=== PATIENT | male | born 1940 | race Caucasian/White ===

== ENCOUNTER 2016-07-09 13:15 | Outpatient (CLI) | payer MEDICARE ==
[~2016-07-09] VITALS: Ht 172.7 cm; Wt 86.2 kg
[~2016-07-09 13:15] MED LIST: ASPI-999 PO; BACL10TA PO; BUPIVACAINE 0.25% 30 ML (SENSORCAINE) VIAL ONE; CITA40TA11; CTLP20T PO; LISI1TAB PO; LISI1TAB10; LISI1TAB10 PO; LOVA40TA2 PO; METO-352 PO; OXYC1TAB PO; POTA20TA8; PRD20T PO; TRAM50TA2; TRAM50TA2 PO; TRIAMCINOLONE ACET (KENALOG-40) 40 MG/ML 1 ML VIAL ONE
--- OUTSIDE RECORDS SUMMARY | 2016-07-09 13:19 | XMS REPORT | Continuity of Care Document ---
Author Author [facility] Organization [facility] Address Unknown Phone Unavailable Care Team Providers Care Gas Well Pumper Name Role Phone PATTY CHAMPION MD PCP Insurance Providers Payer Name Policy Number Subscriber Name Relationship Wps Medicare [id number] Randall Cui 18 Self / Same As Patient [employer] Mc[employer] Supp [id number] Randall Cui 18 Self / Same As Patient Advance Directives Directive Response Recorded Date/Time Advance Directives No 04/19/14 1:09pm Health Care Power of Derivatives Trader No 04/19/14 1:09pm Organ Donor Yes 04/19/14 1:09pm Resuscitation Status Full Code 04/19/14 1:09pm Problems Medical Problems Problem Onset Date Status Lumbar radiculopathy Unknown Active Medications Medication Dose Route Sig Days/Qty Instructions Order Date Discontinued Date Status Citalopram Hydrobromide 1 Each PO DAILY 08/21/13 Active HCTZ/Lisinopril (Zestoretic) 1 Each PO DAILY 08/21/13 Active Oxycodone Hcl/Acetaminophen 1-2 Tab PO EVERY 6 HOURS PRN PAIN 20 Qty Active Prednisone 40 Mg PO DAILY 10 Qty 04/19/14 Active Baclofen (Lioresal) 1 Each PO TID PRN PRN SPASMS 10 Qty 04/19/14 Active Social History Social History Problem Response Recorded Date/Time Alcohol Use Occasionally Uses 04/19/2014 1:09pm Recreational Drug Use No 04/19/2014 1:09pm Recent Foreign Travel No 04/19/2014 1:06pm Smoking Status Never a Smoker 04/19/2014 1:09pm Query Response Start Date Stop Date Smoking Status Never a Smoker Hospital Discharge Instructions No hospital discharge instructions. Plan of Care No plan of care. Functional Status No functional status results. Allergies, Adverse Reactions, Alerts Allergen Type Severity Reaction Status Last Updated ibuprofen Allergy Active 08/21/13 Immunizations Name Given Type Date of Influenza Vaccine 03/17/14 Historical Vital Signs Acute Vital Signs Vital Response Date/Time Temperature (Fahrenheit) 98.3 degrees F (97.6 - 99.5) Temperature (Calculated Celsius) 36.39285 degrees C (36.4 - 37.5) Temperature Source Tympanic Pulse Rate (adult) 80 bpm (60 - 90) Respiratory Rate 18 bpm (12 - 24) O2 Sat by Pulse Oximetry 98 % (88 - 100) Blood Pressure 182/92 mm Hg Pain Pain Intensity 5 Height (Feet) 5 feet Height (Inches) 8 inches Height (Calculated Centimeters) 172.225032 cm Weight (Pounds) 192 pounds Weight (Calculated Kilograms) 87.556421 kilograms Calculated BMI 29.19 Results No known relevant diagnostic tests, laboratory data and/or discharge summary. Procedures No known history of procedures. Encounters Encounter Location Date/Time Departed Emergency Room Via [facility] 04/19/14 11:25am Discharged Recurring Via [facility] 04/15/14 9:17am Recent Diagnosis
[2016-07-09 13:29] VITALS: BP 156/105
[2016-07-09 14:24] VITALS: BP 161/114
--- NOTE | 2016-07-09 14:46 | Pain Medicine-Procedure ---
Procedure Pre-Op/Post-Op Diagnosis Diagnosis: disc disorder with radiculopathy, lumbar Indications for Operation Low back pain Attending Surgeon Anneliese Procedure Date of Service: Jul 09, 2016 Procedure: Caudal epidural steroid injection with catheter under fluoroscopic guidance Procedure: Patient was identified in the holding area. After risks, benefits, and alternatives were discussed with the patient, informed consent was obtained. Patient was brought to the fluoroscopy suite and placed prone on the procedure room table. A time out was performed. Vital signs were monitored throughout the procedure. The patients low back was prepped and draped in the usual sterile fashion. The patients skin was anesthetized using 2% Lidocaine. A Tuohy needle was inserted and multiple attempts were made to advance the needle to the L2-L3 lumbar epidural space but were unsuccessful. Patient was given the option of continuing the procedure and elected to proceed and so the skin was anesthetized over the L4-L5 epidural space and aching in a 2 needle was inserted and multiple tensor made to access the lumbar epidural space at L4- L5 and were unsuccessful. Patient was given the option of terminating the procedure or reporting the procedure to a caudal epidural steroid injection and elected to continue the procedure and convert to caudal epidural. The lower back above the caudal space was prepped with chloraprep and draped in the usual sterile fashion. The skin over the sacral hiatus was identified under fluoroscopic guidance and infiltrated with 1% lidocaine for local anesthesia via 25 gauge needle. An 17-gauge epimed needle was used to access the epidural space under fluoroscopic guidance and was then advanced into the epidural space under fluoroscopic guidance in the AP view. The epimed catheter was then advanced under flourospopic guidance to the L4-L5 interspace. There was no paresthesia with catheter placement. After negative aspiration 1 cc of the contrast dye was injected through the needle with good spread of the medication in the epidural space at the appropriate levels. Again, after negative aspiration, 80 mg of kenalog with 2 cc of 0.25% marcaine and 2 mL's of preservative free normal saline was injected. There was no evidence of CSF, paresthesia or heme during the procedure. The catheter and needle were withdrawn as a unit and the tip was noted to be intact upon removal. Skin was cleaned and a sterile dressings were applied. Following the procedure the patient's vital signs were stable. The patient was discharged home after a brief period of observation with no new neuologic deficits. Complications None ELVIA PETERSEN MD Jul 09, 2016 2:46 pm
== END 2016-07-09 14:25 ==
LOC: CARD 13:15
PROVIDERS: ATTEND Pain Medicine Pain Medicine
DX: M51.16 Intervertebral disc disorders with radiculopathy, lumbar region (principal); M47.816 Spondylosis without myelopathy or radiculopathy, lumbar region; Z79.899 Other long term (current) drug therapy
CPT/HCPCS: 62323

== ENCOUNTER 2017-03-13 11:30 | Outpatient (RCR) | payer MEDICARE ==
[2017-01-09 13:36] VITALS: BP 134/87
[2017-01-09 13:56] VITALS: BP 134/87
[2017-02-13 12:12] VITALS: BP 119/78
[~2017-03-13] VITALS: Ht 172.7 cm; Wt 86.2 kg
[~2017-03-13 11:30] MED LIST changes: -BUPIVACAINE 0.25% 30 ML (SENSORCAINE) VIAL ONE; -TRIAMCINOLONE ACET (KENALOG-40) 40 MG/ML 1 ML VIAL ONE
[2017-03-13 13:20] VITALS: BP 151/97
== END 2017-03-16 | disposition home or self-care (01) ==
LOC: SDC 11:30
PROVIDERS: ATTEND Internal Medicine
DX: D75.1 Secondary polycythemia (principal)
CPT/HCPCS: 99195

== ENCOUNTER 2017-07-15 11:10 | Outpatient (RCR) | payer MEDICARE ==
[2017-04-17 14:00] VITALS: BP 140/91
[2017-05-15 11:36] VITALS: BP 141/85
[2017-06-13 11:00] VITALS: BP 131/88
[~2017-07-15] VITALS: Ht 172.7 cm; Wt 86.2 kg
== END 2017-07-16 | disposition home or self-care (01) ==
LOC: SDC 11:10
PROVIDERS: ATTEND Internal Medicine
DX: D75.1 Secondary polycythemia (principal)
CPT/HCPCS: 99195

== ENCOUNTER 2019-01-09 10:38 | Emergency (ER) | payer MEDICARE ==
[~2019-01-09] VITALS: Ht 172.7 cm; Wt 86.2 kg
[~2019-01-09 10:38] MED LIST changes: -CITA40TA11; +CITA40TA11 PO
[2019-01-09] MEDS ORDERED: ASPIRIN 81 MG CHEW (CHILDREN'S ASA) PO ONE (11:30)
[2019-01-09 11:32] LABS: BASOPHILS % (AUTO) 0 % (0-10); EOSINOPHILS % (AUTO) 0 % (0-10); HEMATOCRIT 46 % (40-54); HEMOGLOBIN 13.9 G/DL (13.3-17.7); LYMPHOCYTES # (AUTO) 1.1 X 10^3 (1.0-4.0); LYMPHOCYTES % (AUTO) 11 % (12-44); MEAN CORPUSCULAR HEMOGLOBIN 25 PG (25-34); MEAN CORPUSCULAR HGB CONC 30 G/DL (32-36); MEAN CORPUSCULAR VOLUME 81 FL (80-99); MEAN PLATELET VOLUME 9.2 FL (7.4-10.4); MONOCYTES # (AUTO) 1.2 X 10^3 (0.0-1.0); MONOCYTES % (AUTO) 12 % (0-12); NEUTROPHILS % (AUTO) 77 % (42-75); PLATELET COUNT 296 10^3/uL (130-400); RED CELL DISTRIBUTION WIDTH 17.7 % (10.0-14.5); WHITE BLOOD COUNT 10.3 10^3/uL (4.3-11.0)
--- NOTE | 2019-01-09 11:36 | ED Lower Extremity ---
General Chief Complaint: Lower Extremity Stated Complaint: LEFT LEG/HIP PAIN History of Present Illness Date Seen by Provider: Jan 09, 2019 Time Seen by Provider: 11:15 Initial Comments 78 year old male presents for left hip and leg pain. He was consuming alcohol last evening and believes he fell at some point in the night, but is unsure. It was not witnessed. He denies headache or tenderness to head/neck. His only complaint is left groin and upper thigh pain. He took Tramadol with no improvement in his s/s. He is on ASA 81 mg daily, last dose yesterday. He took his Lisinopril/HCTZ, Potassium, and Citalopram this morning. He denies chest pain, SOA, syncope, weakness, or other complaints. He was able to ambulate and perform all ADLs this morning but the left hip continued to be painful. He is followed by Drs. Patel and Fabien, but is not compliant with all follow up appointments. He had a cardiac catheterization in 2016. He is unaware of history of a-fib, though it was noted on monitor with variable rate and some runs of sinus rhythm. Previous EKGs from 2016 do not show A Fib. 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 reports he took 2 Prednisone for the last 2 days because his feet were swelling. Onset: yesterday Pain/Injury Location: left hip, left leg Method of Injury: unknown, fell (possible) Allergies and Home Medications Allergies Coded Allergies: ibuprofen (Unverified Allergy, Unknown, 01/07/16) Home Medications Aspirin 81 Mg Tab.chew, 81 MG PO DAILY Prescribed by: NYLA CLINTON on 01/08/16 1340 Cyclobenzaprine HCl 10 Mg Tablet, 10 MG PO Q8H PRN for SPASMS Prescribed by: ANNY LIM on 01/09/19 1248 Lisinopril/Hydrochlorothiazide 1 Each Tablet, 40-50 MG PO DAILY Prescribed by: LAURIE MARTINEZ on 01/07/16 2245 Lovastatin 40 Mg Tablet, 40 MG PO DAILY Prescribed by: NYLA CLINTON on 01/08/16 1340 Metoprolol Succinate 50 Mg Tab.er.24h, 50 MG PO DAILY Prescribed by: NYLA CLINTON on 01/08/16 1340 Potassium Chloride 20 Meq Tablet.er, 20 MEQ PO DAILY Prescribed by: ANNY LIM on 01/09/19 1248 Tramadol HCl 50 Mg Tablet, 50 MG PO BID PRN for MODERATE PAIN Prescribed by: LAURIE MARTINEZ on 01/07/16 2772 Patient Home Medication List Home Medication List Reviewed: Yes Review of Systems Constitutional: no symptoms reported, see HPI Respiratory: no symptoms reported, see HPI; No dyspnea on exertion, No short of breath Cardiovascular: no symptoms reported, see HPI Gastrointestinal: no symptoms reported, see HPI; No abdominal pain Musculoskeletal: see HPI, joint pain (hip and thigh), muscle pain (left thigh) Psychiatric/Neurological: No Symptoms Reported, See HPI All Other Systems Reviewed Negative Unless Noted: Yes Past Ksjprok-Fgdilv-Zwtdiq Hx Past Med/Social Hx: Reviewed Nursing Past Med/Soc Hx, Reviewed and Corrections made Patient Social History Alcohol Use: Regular Use Alcohol Beverage of Choice: [place] Type Used: Cigars Recent Foreign Travel: No Contact w/Someone Who Travel: No Recent Hopitalizations: No Immunizations Up To Date Tetanus Booster (TDap): Unknown Date of Pneumonia Vaccine: Apr 08, 2012 Date of Influenza Vaccine: Mar 17, 2014 Past Medical History Orthopedic Currently Using CPAP: No Currently Using BIPAP: No Hypertension Reproductive Disorders: No Depression Adverse Reaction/Blood Tranf: No Family Medical History Cardiovascular disease 19 FATHER (mi) Neoplasm 19 FATHER (lung ca) 19 MOTHER (lung ca) Not obtainable due to adoption G8 SISTER ( in [place] after drinking alcohol) Respiratory disorder G8 SISTER (copd) No Pertinent Family Hx Physical Exam Vital Signs Vital Signs - First Documented 01/09/19 11:09 Temp 98.4 Pulse 123 Resp 18 B/P (MAP) 177/111 (133) Pulse Ox 93 Capillary Refill : Height, Weight, BMI Height: 5'8.00" Weight: 190lbs. 0.0oz. 86.525658yk; 28.9 BMI Method:Stated General Appearance: WD/WN, no apparent distress HEENT: normal ENT inspection, TMs normal, pharynx normal Neck: non-tender, full range of motion, supple, normal inspection Cardiovascular: no edema, no JVD, no murmur, tachycardia, irregularly irregular Respiratory: chest non-tender, lungs clear, normal breath sounds, no respiratory distress Gastrointestinal: normal bowel sounds, non tender, soft Hips: right hip non-tender; bilateral hip normal inspection; right hip normal range of motion; left hip bone tenderness, left hip limited range of motion, left hip pain, left hip soft tissue tenderness Knees: bilateral knee normal range of motion, bilateral knee bone tenderness (chronic, history of OA but declines knee replacement) Ankles: bilateral ankle non-tender, bilateral ankle normal inspection Neurologic/Tendon: normal sensation, normal motor functions, normal tendon functions Neurologic/Psychiatric: no motor/sensory deficits, alert, normal mood/affect, oriented x 3 Skin: normal color, warm/dry; No diaphoresis, No pallor Lymphatic: no adenopathy Progress/Results/Core Measures Results/Orders Lab Results Laboratory Tests Test 01/09/19 11:28 Range/Units White Blood Count 10.3 4.3-11.0 10^3/uL Red Blood Count 5.67 4.35-5.85 10^6/uL Hemoglobin 13.9 13.3-17.7 G/DL Hematocrit 46 40-54 % Mean Corpuscular Volume 81 80-99 FL Mean Corpuscular Hemoglobin 25 25-34 PG Mean Corpuscular Hemoglobin Concent 30 L 32-36 G/DL Red Cell Distribution Width 17.7 H 10.0-14.5 % Platelet Count 296 130-400 10^3/uL Mean Platelet Volume 9.2 7.4-10.4 FL Neutrophils (%) (Auto) 77 H 42-75 % Lymphocytes (%) (Auto) 11 L 12-44 % Monocytes (%) (Auto) 12 0-12 % Eosinophils (%) (Auto) 0 0-10 % Basophils (%) (Auto) 0 0-10 % Neutrophils # (Auto) 8.0 H 1.8-7.8 X 10^3 Lymphocytes # (Auto) 1.1 1.0-4.0 X 10^3 Monocytes # (Auto) 1.2 H 0.0-1.0 X 10^3 Eosinophils # (Auto) 0.0 0.0-0.3 10^3/uL Basophils # (Auto) 0.0 0.0-0.1 10^3/uL Prothrombin Time 12.9 12.2-14.7 SEC INR Comment 0.9 0.8-1.4 Activated Partial Thromboplast Time 26 24-35 SEC Sodium Level 141 135-145 MMOL/L Potassium Level 2.1 *L 3.6-5.0 MMOL/L Chloride Level 92 L 98-107 MMOL/L Carbon Dioxide Level 34 H 21-32 MMOL/L Anion Gap 15 H 5-14 MMOL/L Blood Urea Nitrogen 18 7-18 MG/DL Creatinine 1.11 0.60-1.30 MG/DL Estimat Glomerular Filtration Rate > 60 BUN/Creatinine Ratio 16 Glucose Level 156 H 70-105 MG/DL Calcium Level 9.1 8.5-10.1 MG/DL Corrected Calcium 9.3 8.5-10.1 MG/DL Total Bilirubin 0.8 0.1-1.0 MG/DL Aspartate Amino Transf (AST/SGOT) 30 5-34 U/L Alanine Aminotransferase (ALT/SGPT) 26 0-55 U/L Alkaline Phosphatase 106 40-136 U/L Troponin I < 0.028 <0.028 NG/ML Total Protein 7.0 6.4-8.2 GM/DL Albumin 3.8 3.2-4.5 GM/DL My Orders Orders - ANNY LIM Cbc With Automated Diff (01/09/19 11:19) Comprehensive Metabolic Panel (01/09/19 11:19) Protime With Inr (01/09/19 11:19) Partial Thromboplastin Time (01/09/19 11:19) Troponin I (01/09/19 11:19) Pelvis With Left Hip 2-3 Views (01/09/19 11:19) Ekg Tracing (01/09/19 11:19) Aspirin Chewable Tablet (Baby Aspirin Ch (01/09/19 11:30) Potassium Chloride (Tablet) (Klor Con Ta (01/09/19 12:09) Cyclobenzaprine Tablet (Flexeril Tablet) (01/10/19 09:00) Cyclobenzaprine Tablet (Flexeril Tablet) (01/09/19 12:45) Medications Given in ED Current Medications Medications Dose Ordered Sig/[place] Route Start Time Stop Time Status Last Admin Dose Admin Aspirin 324 mg ONCE ONCE PO 01/09/19 11:30 01/09/19 11:31 DC 01/09/19 11:43 324 MG Vital Signs/I&O 01/09/19 01/09/19 11:09 13:25 Temp 98.4 98.4 Pulse 123 123 Resp 18 18 B/P (MAP) 177/111 (133) 152/99 (116) Pulse Ox 93 93 Progress Progress Note : Time: 11:15 Progress Note Patient is seen and evaluated, although his chief complaint is left groin pain, with the heart rhythm on monitor having runs of a-fib and sinus, will get EKG. He denies SOA or Chest Pain, but will check troponin. Then obtain pelvis and left hip x-ray. 1145 Tramadol 50 mg and Cyclobenzaprine 10 mg for pain. 12:15 K+ 2.1, will give K+ 20 mEq po. Patient states he takes K+ 8 mEq? 1230 reviewed x-ray and lab findings with the patient and son. Discussed his EKG. Will speak to cardiology before making disposition plans. [address] Yanez, reviewed EKG findings. [place] disposition to home with follow up Cariology next week. Appt made with Dr. Conn's office 1255 Dr. Yanez here, evaluating patient. Agreed there are some runs of A-fib but then returns to sinus rhythm. 1315 Discharge instructions and return precautions reviewed with, his son and . All questions answered. Initial ECG Impression Date: Jan 09, 2019 Initial ECG Impression Time: 11:33 Initial ECG Rate: 89 Initial ECG Rhythm: Normal Sinus (with sinus arrythmia) Initial ECG Intervals WY 140, QRSD 102, QT 392, QTC 477. Crucible P 29, QRS -49, T 39. Initial ECG Impression: Normal, Nonspecific Changes Initial ECG Comparisson: Unchanged Comment Reviewed with Dr. Boudreaux, non-specific changes. Diagnostic Imaging Diagonstic Imaging: Xray Plain Films/CT/US/NM/MRI: pelvis, hip Comments NAME: GLORIA DALTON [employer] REC#: [id number] PT STATUS: REG ER : 1940 PHYSICIAN: ANNY LIM ADMIT DATE: 01/09/19/ER Draft Date of Exam:01/09/19 PELVIS WITH LEFT HIP 2-3 VIEWS INDICATION: Pain. COMPARISON: CT dated April 19, 2014. TECHNIQUE: Three radiographs of the pelvis and left hip dated January 09, 2019. FINDINGS: No acute fracture or dislocation. No destructive osseous process. Mild degenerative changes within the bilateral hips and visualized lower lumbar spine. The sacroiliac joints are intact. The left femoral head maintains its normal shape and contour. IMPRESSION: No acute osseous abnormality with mild scattered degenerative changes. Dictated on workstation # [id number] Dict: 01/09/19 1229 Trans: 01/09/19 1232 [id number] Interpreted by: TITUS ELI MD Electronically signed by: Departure Impression Primary Impression: Fall Qualified Codes: W19.XXXA - Unspecified fall, initial encounter Additional Impressions: Left hip pain New onset a-fib Disposition: HOME, SELF-CARE Condition: Improved Departure-Patient Inst. Decision time for Depature: 13:10 Referrals: PATTY PATEL MD (PCP/Family) Primary Care Physician Patient Instructions: Alcohol Abuse and Alcoholism (DC), Atrial Fibrillation (DC), Hip Pain (DC) Add. Discharge Instructions: Follow up with Dr. Patel, call Saturday for Appt. Appt with Melani Luciano NP at Dr. Conn's office on Saturday 2:00 pm Take the Potassium I have prescribed for the next 6 days, then talk to Dr. Patel about continuing your previous dose. Continue to use Tramadol every 6-8 hours for pain. Take the Cyclobenzaprine for muscle pain every 8 hours, as needed. You may take Tylenol 650 mg every 6-8 hours. Increase water intake. Continue to take your other routine medications, including Aspirin 81 mg daily. Ice to left hip 20 min every 2 hours. Use the cane for ambulation, hold in your right hand. Decrease alcohol intake. Return to emergency dept for new concerns, chest pain, difficulty breathing, chest palpitations, new falls, or other urgent concerns. All discharge instructions reviewed with patient and/or family. Voiced understanding. Scripts Cyclobenzaprine HCl (Cyclobenzaprine HCl) 10 Mg Tablet 10 MG PO Q8H PRN for SPASMS, #15 TAB 0 Refills Prov: ANNY LIM 01/09/19 Potassium Chloride (K-Tab ER) 20 Meq Tablet.er 20 MEQ PO DAILY, #6 TAB 0 Refills Prov: ANNY LIM 01/09/19 Copy Copies To 1: PATTY PATEL MD; SAGE CONN MD [facility]; Joshua YAENZ MD, AMY ARNP Jan 09, 2019 11:36
[2019-01-09 11:46] LABS: INR 0.9 (0.8-1.4); PROTHROMBIN TIME PATIENT 12.9 SEC (12.2-14.7)
[2019-01-09 11:57] LABS: ALANINE AMINOTRANSFERASE 26 U/L (0-55); ALBUMIN 3.8 GM/DL (3.2-4.5); ALKALINE PHOSPHATASE 106 U/L (40-136); BILIRUBIN,TOTAL 0.8 MG/DL (0.1-1.0); BUN/CREATININE RATIO 16; CALCIUM 9.1 MG/DL (8.5-10.1); CARBON DIOXIDE 34 MMOL/L (21-32); CHLORIDE 92 MMOL/L (98-107); CREATININE SERUM 1.11 MG/DL (0.60-1.30); GFR ESTIMATED > 60; GLUCOSE 156 MG/DL (70-105); SODIUM 141 MMOL/L (135-145)
[2019-01-09 12:05] LABS: POTASSIUM 2.1 MMOL/L (3.6-5.0)
[2019-01-09] MEDS ORDERED: KCL 10 MEQ TAB (MICRO K) PO STA (12:09)
--- NOTE | 2019-01-09 12:33 | Diagnostic Imaging Report ---
INDICATION: Pain. COMPARISON: CT dated April 19, 2014. TECHNIQUE: Three radiographs of the pelvis and left hip dated January 09, 2019. FINDINGS: No acute fracture or dislocation. No destructive osseous process. Mild degenerative changes within the bilateral hips and visualized lower lumbar spine. The sacroiliac joints are intact. The left femoral head maintains its normal shape and contour. IMPRESSION: No acute osseous abnormality with mild scattered degenerative changes. Dictated by: Dictated on workstation # [id number]
[2019-01-09] MEDS ORDERED: CYCLOBENZAPRINE 10 MG (FLEXERIL) TAB PO SCH (12:45)
[2019-01-09] MEDS ORDERED: CYCL10TA9 PO (12:48)
[2019-01-09] MEDS ORDERED: POTA-53 PO (12:48)
--- NOTE | 2019-01-09 13:14 | Consultation-Cardiology ---
HPI-Cardiology Cardiology Consultation: Date of Consultation 01/09/19 Date of Admission Attending Physician Admitting Physician Alexis Patel MD Consulting Physician Joshua YANEZ MD HPI: Time Seen by a Provider: 13:14 Chief Complaint: Irregular heart rhythm. This is a 78-year-old gentleman who is followed by Dr. Patel and Dr. Conn. He presents with complain of left hip and leg pain. Possible history of a fall. Likely associated with alcohol intoxication. He also has history of hypertension and takes lisinopril/hydrochlorothiazide. On ER telemetry he was found to have irregular rhythm therefore cardiology was consulted. Patient denies any chest pain, shortness of breath, syncope, near-syncope or palpitations. He's had previous history of coronary angiography in 2016 which was unremarkable. His not aware of any history of atrial fibrillation. Previous EKGs do not document atrial fibrillation. Review of Systems-Cardiology Review of Systems Constitutional: As described under HPI; No As described under HPI, No no symptoms reported, No chills, No fever, No lightheadedness Eyes: No As described under HPI, No no symptoms reported, No blindness, No blurred vision, No contact lenses, No drainage, No decreased acuity, No foreign body sensation, No pain, No vision change Ears/Nose/Throat: No As described under HPI, No no symptoms reported, No chronic hearing loss, No ear discharge, No ear pain, No nasal drainage, No ulcerations Respiratory: No no symptoms reported; As described under HPI; No As described under HPI, No cough, No orthopnea, No shortness of breath, No SOB with excertion Cardiovascular: No no symptoms reported; As described under HPI; No As described under HPI, No chest pain, No edema, No irregular heart rate, No lightheadedness, No palpitations Gastrointestinal: No no symptoms reported, No As described under HPI, No abdomen distended, No abdominal pain, No blood streaked bowels, No constipation, No diarrhea, No nausea, No vomiting, No stool coloration changes Genitourinary: No As described under HPI, No burning, No dysuria, No discharge, No frequency, No flank pain, No hematuria, No urgency Musculoskeletal: joint pain Skin: No rash, No skin related problems, No ulcerations Psychiatric/Neurological: No anxiety, No depression, No seizure, No focal weakness, No syncope Hematologic: No bleeding abnormalities All Other Systems Reviewed Negative Unless Noted: Yes IMY-Rcigdd-Kgdwod Hx Patient Social History Alcohol Use: Regular Use Recreational Drug Use: No Smoking Status: Former Smoker Type Used: Cigars 2nd Hand Smoke Exposure: No Recent Foreign Travel: No Recent Infectious Disease Expo: No Hospitalization with Isolation: Denies Immunizations Up To Date Tetanus Booster (TDap): Unknown Date of Pneumonia Vaccine: Apr 08, 2012 Date of Influenza Vaccine: Mar 17, 2014 Past Medical History PMH As described under Assessment. Family Medical History Family History: Cardiovascular disease 19 FATHER (mi) Neoplasm 19 FATHER (lung ca) 19 MOTHER (lung ca) Not obtainable due to adoption G8 SISTER ( in [place] after drinking alcohol) Respiratory disorder G8 SISTER (copd) Allergies and Home Medications Allergies Coded Allergies: ibuprofen (Unverified Allergy, Unknown, 01/07/16) Home Medications Aspirin 81 Mg Tab.chew, 81 MG PO DAILY Prescribed by: NYLA CLINTON on 01/08/16 1340 Cyclobenzaprine HCl 10 Mg Tablet, 10 MG PO Q8H PRN for SPASMS Prescribed by: ANNY LIM on 01/09/19 1248 Lisinopril/Hydrochlorothiazide 1 Each Tablet, 40-50 MG PO DAILY Prescribed by: LAURIE MARTINEZ on 01/07/16 2245 Lovastatin 40 Mg Tablet, 40 MG PO DAILY Prescribed by: NYLA CLINTON on 01/08/16 1340 Metoprolol Succinate 50 Mg Tab.er.24h, 50 MG PO DAILY Prescribed by: NYLA CLINTON on 01/08/16 1340 Potassium Chloride 20 Meq Tablet.er, 20 MEQ PO DAILY Prescribed by: ANNY LIM on 01/09/19 1248 Tramadol HCl 50 Mg Tablet, 50 MG PO BID PRN for MODERATE PAIN Prescribed by: LAURIE MARTINEZ on 01/07/16 2245 Patient Home Medication List Home Medication List Reviewed: Yes Physical Exam-Cardiology Physical Exam Vital Signs/I&O 01/09/19 01/09/19 11:09 13:25 Temp 98.4 98.4 Pulse 123 123 Resp 18 18 B/P (MAP) 177/111 (133) 152/99 (116) Pulse Ox 93 93 Capillary Refill : Less Than 3 Seconds Constitutional: appears stated age, AAO x 3; No apparent distress; well- developed, well-nourished HEENT: PERRL; No normal ENT inspection, No TMs normal, No pharynx normal, No scleral icterus (R), No scleral icterus (L), No pale conjunctivae (R), No pale conjunctivae (L), No photophobia, No TM abnormal (R), No TM abnormal (L), No pharyngeal erythema, No tonsillar exudate, No other, No discharge, No EOMI; hearing is well preserved; No hard of hearing; oral hygience is good; No ulceration, No xanthelasmas are seen Neck: No non-tender, No full range of motion, No supple, No normal inspection, No carotid bruit, No limited range of motion, No lymphadenopathy (R), No lymphadenopathy (L), No tender lateral, No tender midline, No thyromegaly, No other; carotid pulses are 2 + bilaterally; No with good upstrokes Respiratory: No accessory muscle use, No respiratory distress, No chest tender, No chest expansion is symmetric; chest is bilaterally symmetric; No lungs clear to percussion; lungs clear to auscultation; No crackles, No rhonchi, No rales, No stridor, No wheezing, No pleural rub, No other Cardiovascular: regular rate-rhythm; No irregularly irregular, No extra beats, No parasternal heave is noted, No JVD, No edema, No bradycardia, No tachycardia, No point of maximal impulse, No cardiac thrills are palpable; S1 and S2; No gallop/S3, No gallop/S4, No diastolic murmur, No systolic murmur, No friction rub, No click, No other Gastrointestinal: No tender, No soft, No round, No distended, No pulsatile mass, No organomegaly, No guarding, No rebound, No tenderness, No hernia, No mass, No audible bowel sounds, No abnormal bowel sounds, No abdominal bruits, No spleenomegaly, No other Rectal: deferred Extremities: No normal range of motion, No non-tender, No normal inspection, No pedal edema, No calf tenderness, No normal capillary refill, No pelvis stable, No calf tenderness, No inflammation, No pedal edema, No slow capillary refill, No swelling, No other, No abrasion, No clubbing, No cyanosis, No ecchymosis, No laceration, No no lower extremity edema bilateral, No significant edema, No tenderness, No wound Neurologic/Psychiatric: no motor/sensory deficits, alert, normal mood/affect, oriented x 3, power is 5/5 both on sides Skin: No rash, No ulcerations Lymphatic: no adenopathy Data Review Labs Laboratory Tests 01/09/19 11:28: White Blood Count 10.3, Red Blood Count 5.67, Hemoglobin 13.9, Hematocrit 46, Mean Corpuscular Volume 81, Mean Corpuscular Hemoglobin 25, Mean Corpuscular Hemoglobin Concent 30L, Red Cell Distribution Width 17.7H, Platelet Count 296, Mean Platelet Volume 9.2, Neutrophils (%) (Auto) 77H, Lymphocytes (%) (Auto) 11L , Monocytes (%) (Auto) 12, Eosinophils (%) (Auto) 0, Basophils (%) (Auto) 0, Neutrophils # (Auto) 8.0H, Lymphocytes # (Auto) 1.1, Monocytes # (Auto) 1.2H, Eosinophils # (Auto) 0.0, Basophils # (Auto) 0.0, Prothrombin Time 12.9, INR Comment 0.9, Activated Partial Thromboplast Time 26, Sodium Level 141, Potassium Level 2.1*L, Chloride Level 92L, Carbon Dioxide Level 34H, Anion Gap 15H, Blood Urea Nitrogen 18, Creatinine 1.11, Estimat Glomerular Filtration Rate > 60, BUN/Creatinine Ratio 16, Glucose Level 156H, Calcium Level 9.1, Corrected Calcium 9.3, Total Bilirubin 0.8, Aspartate Amino Transf (AST/SGOT) 30, Alanine Aminotransferase (ALT/SGPT) 26, Alkaline Phosphatase 106, Troponin I < 0.028, Total Protein 7.0, Albumin 3.8 ECG Impression ECG Initial ECG Rhythm: Normal Sinus Initial ECG Impression: Normal A/P-Cardiology Assessment/Admission Diagnosis Possible fall, leg discomfort, Alcohol intoxication, Mild to moderate CAD, Possible paroxysmal atrial fibrillation Plan Patient had previous coronary angiography done by Dr. Conn in 2015 which showed [id number] disease in proximal LAD. No intervention was indicated. Echocardiogram done [place] [address] Patel showed normal LV size and function. No significant valvular heart disease. ER telemetry shows short runs of atrial fibrillation. With sinus rhythm numerous PACs. I have recommended to the patient and to the ER Provider that the patient follows with Dr. Conn with intent of getting an event monitor and further assessment and evaluation of atrial fibrillation. We will arrange for a follow-up within the next one week. The patient understands and will follow-up as recommended. Thank you for your consultation. Please call me if you have any questions. Josh Yanez MD, FACP, FACC, FSCAI, FHRS, CCDS Interventional Cardiology Cardiac Electrophysiology Vascular Medicine and Endovascular Interventions Joshua YANEZ MD Jan 09, 2019 13:14
[2019-01-09 13:25] VITALS: BP 152/99
[2019-01-10] MEDS ORDERED: CYCLOBENZAPRINE 10 MG (FLEXERIL) TAB PO SCH (09:00)
== END 2019-01-09 13:30 | disposition home or self-care (01) ==
LOC: EDUNIT# 10:38 → ER 10:40
DX: M25.552 Pain in left hip (principal); I48.91 Unspecified atrial fibrillation; I10 Essential (primary) hypertension; F32.9 Major depressive disorder, single episode, unspecified; Z79.82 Long term (current) use of aspirin; Z95.9 Presence of cardiac and vascular implant and graft, unspecified; Z88.6 Allergy status to analgesic agent; Z82.49 Family history of ischemic heart disease and other diseases of the circulatory system; Z80.1 Family history of malignant neoplasm of trachea, bronchus and lung; W19.XXXA Unspecified fall, initial encounter
CPT/HCPCS: 36415; 80053; 84484; 85025; 85610; 85730; 93005

== ENCOUNTER 2019-01-10 20:40 | Inpatient (IN) | payer MEDICARE ==
[~2019-01-10] VITALS: Ht 172.7 cm; Wt 84.8 kg
[~2019-01-10 20:40] MED LIST changes: +CYCL10TA9 PO; +POTA-53 PO
[2019-01-10 21:24] LABS: CLARITY,URINE SLIGHTLY CLOUDY; COLOR,URINE AMBER; GLUCOSE, URINE (UA) NEGATIVE (NEGATIVE); KETONES,URINE 1+ (NEGATIVE); LEUKOCYTE ESTERASE ,URINE 2+ (NEGATIVE); NITRITE,URINE NEGATIVE (NEGATIVE); PH,URINE 7 (5-9); PROTEIN,URINE 3+ (NEGATIVE); UROBILINOGEN,URINE 12 MG/DL (NORMAL)
[2019-01-10 21:31] LABS: BILIRUBIN,URINE 1+ (NEGATIVE)
[2019-01-10 21:32] LABS: BACTERIA,URINE FEW /HPF; RBC,URINE 0-2 /HPF
[2019-01-10 21:36] LABS: AMPHETAMINE SCREEN, URINE NEGATIVE (NEGATIVE); BARBITURATE SCREEN URINE NEGATIVE (NEGATIVE); BENZODIAZEPINES SCREEN URINE NEGATIVE (NEGATIVE); CANNABINOID SCREEN, URINE NEGATIVE (NEGATIVE); COCAINE SCREEN URINE NEGATIVE (NEGATIVE); METHADONE STAT NEGATIVE (NEGATIVE); METHAMPHETAMINE SCREEN URINE S NEGATIVE (NEGATIVE); OPIATE SCREEN URINE NEGATIVE (NEGATIVE); OXYCODONE STAT NEGATIVE (NEGATIVE); PROPOXYPHENE STAT NEGATIVE (NEGATIVE); TRICYCLIC ANTIDEPRESSANTS SCRE POSITIVE (NEGATIVE)
--- NOTE | 2019-01-10 21:43 | Diagnostic Imaging Report ---
INDICATION: Confusion, pain FINDINGS: There is elevation of the right diaphragm stable from exam of 3 years earlier. The heart size stable and unremarkable. The lungs clear. No effusion or pneumothorax. IMPRESSION: No acute appearing abnormality. Dictated by: Dictated on workstation # [id number]
--- NOTE | 2019-01-10 22:03 | Diagnostic Imaging Report ---
PROCEDURE: CT head and CT cervical spine without contrast. TECHNIQUE: Multiple contiguous axial images were obtained through the brain and cervical spine without the use of intravenous contrast. Sagittal and coronal reformations through the cervical spine were then performed. Auto Exposure Controls were utilized during the CT exam to meet ALARA standards for radiation dose reduction. INDICATION: Fall CT head: There is no hemorrhage, hydrocephalus, edema, mass, mass effect, or evidence for elevated intracranial pressures. No calvarial deformity. No hemo-sinus. No pneumocephalus. Basilar cisterns patent and sulci non-effaced. There is mild cerebral cortical atrophy and periventricular white matter disease unremarkable for age. CT cervical spine: Degenerative changes to the discs, facets and uncovertebral joints throughout the cervical spine. Body heights maintained, the alignment within normal limits. No fracture or paravertebral hematoma. Prevertebral space appeared unremarkable. The structures of the larynx grossly unremarkable. Incidental note of incomplete fusion of the posterior ring of C1 as a variant. The bony skull base was intact. There is no mastoid effusion. The middle ear cavities clear. IMPRESSION: CT head: Mild chronic senescent change but no hemorrhage or acute abnormality. CT cervical spine: Degenerative change without fracture or traumatic malalignment. Dictated by: Dictated on workstation # [id number]
--- NOTE | 2019-01-10 22:07 | Diagnostic Imaging Report ---
PROCEDURE: CT left lower extremity without contrast. TECHNIQUE: Multiple contiguous axial images were obtained through the left lower extremity without the use of intravenous contrast. Sagittal and coronal reformations were then performed. Auto Exposure Controls were utilized during the CT exam to meet ALARA standards for radiation dose reduction. INDICATION: Injury with hip pain. FINDINGS: There is a subtle fracture through the anterior column of the left acetabulum without displacement or convincing extension into the articular surface. The femoral head maintains normal sphericity in normal relationship to the articular acetabulum. The femoral neck, trochanters and subtrochanteric shaft are intact. The partially visualized left inferior pubic ramus is unremarkable. IMPRESSION: Subtle fracture, nondepressed and nondisplaced to the anterior column of left acetabulum without definite articular extension, arthritic but intact femoral head and neck. No significant hematoma found. Results were discussed with Dr. Watson. Dictated by: Dictated on workstation # [id number]
--- NOTE | 2019-01-10 22:11 | Diagnostic Imaging Report ---
PROCEDURE: CT pelvis without contrast. TECHNIQUE: Multiple contiguous axial images were obtained through the pelvis without the use of intravenous contrast. Sagittal and coronal reformations were performed. Auto Exposure Controls were utilized during the CT exam to meet ALARA standards for radiation dose reduction. INDICATION: Fall, left hip pain There is a left acetabular fracture involving the anterior column. No articular offset. The inferior ramus is intact. There is degenerative changes to the unwidened symphysis. There is degenerative change to the unwidened SI joints. The sacrococcygeal segments unremarkable. There is advanced degenerative changes to the discs, endplates, facets and ligaments of the lumbar spine. No pelvic hematoma or free fluid. There is no dislocation of the hips. The femoral heads and necks, trochanters and subtrochanteric shafts where visualized were intact. Bone island in the left iliac bone present. Some old appearing mixed sclerosis and lucency in the left ischium. IMPRESSION: Left acetabular fracture nondisplaced involves the anterior column. There is degenerative changes and additional chronic findings as described. No free fluid or substantial hematoma identified. These results were phoned to Dr. Watson. Dictated by: Dictated on workstation # [id number]
[2019-01-10 22:12] LABS: BASOPHILS % (AUTO) 0 % (0-10); EOSINOPHILS # (AUTO) 0.1 10^3/uL (0.0-0.3); EOSINOPHILS % (AUTO) 1 % (0-10); HEMATOCRIT 46 % (40-54); HEMOGLOBIN 13.8 G/DL (13.3-17.7); LYMPHOCYTES # (AUTO) 1.2 X 10^3 (1.0-4.0); LYMPHOCYTES % (AUTO) 14 % (12-44); MEAN CORPUSCULAR HEMOGLOBIN 25 PG (25-34); MEAN CORPUSCULAR HGB CONC 30 G/DL (32-36); MEAN CORPUSCULAR VOLUME 82 FL (80-99); MEAN PLATELET VOLUME 9.4 FL (7.4-10.4); MONOCYTES # (AUTO) 1.1 X 10^3 (0.0-1.0); MONOCYTES % (AUTO) 12 % (0-12); NEUTROPHILS # (AUTO) 6.3 X 10^3 (1.8-7.8); NEUTROPHILS % (AUTO) 72 % (42-75); PLATELET COUNT 278 10^3/uL (130-400); RED CELL DISTRIBUTION WIDTH 17.8 % (10.0-14.5); WHITE BLOOD COUNT 8.7 10^3/uL (4.3-11.0)
[2019-01-10 22:23] LABS: PROTHROMBIN TIME PATIENT 13.9 SEC (12.2-14.7)
[2019-01-10 22:31] LABS: ALANINE AMINOTRANSFERASE 21 U/L (0-55); ALBUMIN 3.6 GM/DL (3.2-4.5); ALKALINE PHOSPHATASE 104 U/L (40-136); BUN/CREATININE RATIO 15; CARBON DIOXIDE 35 MMOL/L (21-32); CHLORIDE 91 MMOL/L (98-107); CREATININE SERUM 1.18 MG/DL (0.60-1.30); GFR ESTIMATED 59; GLUCOSE 115 MG/DL (70-105); MAGNESIUM 1.7 MG/DL (1.8-2.4); SODIUM 141 MMOL/L (135-145); TOTAL PROTEIN 6.9 GM/DL (6.4-8.2)
[2019-01-10 22:36] LABS: POTASSIUM 2.4 MMOL/L (3.6-5.0)
[2019-01-10] MEDS ORDERED: D5 1/2 NS W/KCL 20 MEQ/L 1,000 ML IV SCH (22:45)
[2019-01-10] MEDS ORDERED: MAGNESIUM 1 GM/100 ML IVPB 100 ML IV ONE (22:45)
[2019-01-10 22:51] LABS: TSH (THYROID ANALYZER) 0.58 UIU/ML (0.35-4.94)
[2019-01-10] MEDS ORDERED: cefTRIAXone FOR IV USE 1,000 MG in WATER (STERILE) FOR INJECTION 10 ML IV ONE (23:15)
[2019-01-11] VITALS (24 sets, daily range): BP systolic 80–174; BP diastolic 68–129
[2019-01-11] MEDS ORDERED: cefTRIAXone 1,000 MG IV (ROCEPHIN) VIAL ONE (00:12)
[2019-01-11] MEDS ORDERED: WATER (STERILE) FOR INJECTION 10 ML ONE (00:12)
[2019-01-11] MEDS ORDERED: D5 1/2 NS W/KCL 20 MEQ/L 1,000 ML IV SCH (02:16)
[2019-01-11] MEDS ORDERED: 1/2 NS IV SOLUTION 1,000 ML IV PRN (02:16)
[2019-01-11] MEDS ORDERED: LORazepam INJ 2 MG/ML (ATIVAN) VIAL IM/IV PRN (02:30)
[2019-01-11] MEDS ORDERED: ANTACID SUSP 30 ML UDC (MYLANTA) PO PRN (02:30)
[2019-01-11] MEDS ORDERED: ACETAMINOPHEN 500 MG TAB (TYLENOL) PO PRN (02:30)
[2019-01-11] MEDS ORDERED: LORazepam 1 MG (ATIVAN) TAB PO PRN (02:30)
[2019-01-11] MEDS ORDERED: ONDANSETRON 4 MG (ZOFRAN) ORAL DISSOLVE TAB SL PRN (02:30)
[2019-01-11] MEDS ORDERED: SENNA W/DOCUSATE (SENOKOT S) TABLET PO PRN (02:30)
[2019-01-11] MEDS ORDERED: ONDANSETRON 4 MG/2 ML (SDV) Z0FRAN IV PRN (02:30)
[2019-01-11] MEDS ORDERED: D5 1/2 NS 1000 ML IV SOLUTION 1,000 ML IV PRN (02:30)
[2019-01-11] MEDS: D5 1/2 NS W/KCL 20 MEQ/L 1,000 ML IV SCH ×2 (02:38→13:22)
[2019-01-11 03:24] LABS: BASOPHILS % (AUTO) 0 % (0-10); EOSINOPHILS # (AUTO) 0.1 10^3/uL (0.0-0.3); EOSINOPHILS % (AUTO) 1 % (0-10); HEMATOCRIT 45 % (40-54); HEMOGLOBIN 13.2 G/DL (13.3-17.7); LYMPHOCYTES # (AUTO) 1.1 X 10^3 (1.0-4.0); LYMPHOCYTES % (AUTO) 14 % (12-44); MEAN CORPUSCULAR HEMOGLOBIN 24 PG (25-34); MEAN CORPUSCULAR HGB CONC 30 G/DL (32-36); MEAN CORPUSCULAR VOLUME 82 FL (80-99); MEAN PLATELET VOLUME 9.7 FL (7.4-10.4); MONOCYTES # (AUTO) 0.9 X 10^3 (0.0-1.0); MONOCYTES % (AUTO) 12 % (0-12); NEUTROPHILS # (AUTO) 5.7 X 10^3 (1.8-7.8); NEUTROPHILS % (AUTO) 73 % (42-75); PLATELET COUNT 247 10^3/uL (130-400); RED CELL DISTRIBUTION WIDTH 17.8 % (10.0-14.5); WHITE BLOOD COUNT 7.9 10^3/uL (4.3-11.0)
[2019-01-11 03:44] LABS: ALANINE AMINOTRANSFERASE 19 U/L (0-55); ALBUMIN 3.3 GM/DL (3.2-4.5); ALKALINE PHOSPHATASE 93 U/L (40-136); BILIRUBIN,TOTAL 0.7 MG/DL (0.1-1.0); BUN/CREATININE RATIO 16; CALCIUM 8.6 MG/DL (8.5-10.1); CARBON DIOXIDE 35 MMOL/L (21-32); CHLORIDE 91 MMOL/L (98-107); GFR ESTIMATED > 60; GLUCOSE 175 MG/DL (70-105); MAGNESIUM 1.9 MG/DL (1.8-2.4); SODIUM 138 MMOL/L (135-145); TOTAL PROTEIN 6.2 GM/DL (6.4-8.2)
[2019-01-11 03:53] LABS: POTASSIUM 2.1 MMOL/L (3.6-5.0)
[2019-01-11] MEDS: LORazepam INJ 2 MG/ML (ATIVAN) VIAL IV PRN ×2 (04:12→21:54)
--- NOTE | 2019-01-11 06:12 | ED General ---
General Chief Complaint: Neurological Problems Stated Complaint: UTI;AMS;L ACETABULAR FRACTURE Nursing Triage Note: PT FELL TWO DAYS AGO AND WAS EVALUATED YESTERDAY FOR LEFT HIP PAIN. PT FAMILY STATES PT HAS BEEN HALLUCINATING, TRYING TO PICK THINGS OFF THE FLOOR THAT ARE NOT THERE. PT FAMILY STATES THE PEOPLE WHO WITNESSED THE FALL STATED THAT PT HIT HEAD ON WALL HARD. PT IS WALKING WITH A WALKER AND ABLE TO BEAR WEIGHT. PT FAMILY STATES PT DOES NOT USUALLY WALK WITH WALKER. Nursing Sepsis Screen: No Definite Risk Source of Information: Patient, Spouse History of Present Illness Date Seen by Provider: Jan 10, 2019 Time Seen by Provider: 21:00 Initial Comments PT ARRIVES VIA POV FROM HOME PT STATES HE FELL 2 DAYS AGO, AND HURT HIS LEFT HIP WAS SEEN IN ER YESTERDAY AND XRAYS OF HIP WERE READ NEGATIVE PT HAS HAD CONTINUED LEFT HIP PAIN, AND HAS BEEN USING A WALKER TO AMBULATE, WHICH HE DOES NOT NORMALLY USE AT THAT VISIT, PT HAD REPORTED THAT HE HAD BEEN DRINKING ALCOHOL AND THOUGHT THAT HE FELL AT SOME POINT, BUT THE FALL WAS NOT WITNESSED. WAS ALSO FOUND TO BE IN NEW ONSET INTERMITTENT ATRIAL FIBRILLATION AT THAT TIME AND DR. YANEZ WAS CONSULTED. NOT STARTED ON ANY BLOOD THINNERS, BUT TAKES ASPIRIN 81 MG DAILY, AND ADVISED TO FOLLOW UP WITH DR. PRICE NEXT WEEK WAS PRESCRIBED FLEXERIL AND POTASSIUM, AND HAS HOME TRAMADOL IT IS REPORTED TO ME THAT THE FALL WAS WITNESSED, BUT NOT BY ANY FAMILY MEMBERS FAMILY JUST DISCOVERED TONIGHT, AND PT ADMITTED TO THEM, THAT HE HIT HIS HEAD WHEN HE FELL. HE DID NOT REPORT THIS TO ANY ONE ELSE UNTIL TONIGHT. IS UNKNOWN IF PT HAD LOSS OF CONSCIOUSNESS OR NOT--PT IS NOT A RELIABLE HISTORIAN ABOUT THE EVENTS SURROUNDING HIS FALL--DOES NOT RECALL EXACTLY WHAT HAPPENED, BUT WAS DRINKING ALCOHOL AT THE TIME FAMILY REPORTS THAT PT HAS HAD INCREASING CONFUSION SINCE YESTERDAY, AND HAS BEEN HALLUCINATING DENIES HEAD OR NECK PAIN NO REPORTED VISION CHANGES NO PARESTHESIAS OR MOTOR DEFICITS NO NAUSEA/VOMITING NO DIZZINESS NO COUGH, FEVER OR RECENT ILLNESS. DENIES ANY URINARY SYMPTOMS STATES HE HAS BEEN EATING AND DRINKING NORMALLY PT DRINKS ALCOHOL DAILY. NO CHEST PAIN, PALPITATIONS OR SHORTNESS OF BREATH PCP: DR. CHAMPION PLODDER OPERATOR: DR. PRICE Allergies and Home Medications Allergies Coded Allergies: ibuprofen (Unverified Allergy, Unknown, 01/07/16) Home Medications Aspirin 81 Mg Tab.chew, 81 MG PO DAILY Prescribed by: NYLA CLINTON on 01/08/16 1340 Cyclobenzaprine HCl 10 Mg Tablet, 10 MG PO Q8H PRN for SPASMS Prescribed by: ANNY LIM on 01/09/19 1248 Lisinopril/Hydrochlorothiazide 1 Each Tablet, 40-50 MG PO DAILY Prescribed by: LAURIE MARTINEZ on 01/07/162244 Lovastatin 40 Mg Tablet, 40 MG PO DAILY Prescribed by: NYLA CLINTON on 01/08/16 1340 Metoprolol Succinate 50 Mg Tab.er.24h, 50 MG PO DAILY Prescribed by: NYLA CLINTON on 01/08/16 1340 Potassium Chloride 20 Meq Tablet.er, 20 MEQ PO DAILY Prescribed by: ANNY LIM on 01/09/19 1248 Tramadol HCl 50 Mg Tablet, 50 MG PO BID PRN for MODERATE PAIN Prescribed by: LAURIE MARTINEZ on 01/07/162244 Patient Home Medication List Home Medication List Reviewed: Yes Review of Systems Review of Systems Constitutional: no symptoms reported; No chills, No diaphoresis, No dizziness, No fever EENTM: no symptoms reported Respiratory: no symptoms reported; No cough, No short of breath Cardiovascular: no symptoms reported; No chest pain, No palpitations Gastrointestinal: no symptoms reported; No abdominal pain, No nausea, No vomiting Genitourinary: no symptoms reported Musculoskeletal: see HPI; No back pain Skin: no symptoms reported Psychiatric/Neurological: See HPI; Denies Headache, Denies Numbness, Denies Paresthesia, Denies Seizure, Denies Tingling, Denies Tremors, Denies Weakness Hematologic/Lymphatic: No Symptoms Reported Immunological/Allergic: no symptoms reported Past Hlfbbap-Txvtat-Dpsoro Hx Patient Social History Alcohol Use: Regular Use (DRINKS DAILY) Number of Drinks Today: BB Alcohol Beverage of Choice: [place] Recreational Drug Use: No Smoking Status: Current Everyday Smoker Type Used: Cigars 2nd Hand Smoke Exposure: No Recent Foreign Travel: No Contact w/Someone Who Travel: No Recent Infectious Disease Expo: No Recent Hopitalizations: No Physical Abuse: No Sexual Abuse: No Fear: No Immunizations Up To Date Tetanus Booster (TDap): Unknown Date of Pneumonia Vaccine: Apr 08, 2012 Date of Influenza Vaccine: Mar 17, 2014 Past Medical History Surgeries: Yes (CYST ON ROOF OF MOUTH REMOVED; EGD/COLONOSCOPIES/POLYPECTOMIES; CARDIAC CATH 2015--MILD TO MODERATE DISEASE, NO INTERVENTION) Cardiac, Orthopedic Respiratory: No Currently Using CPAP: No Currently Using BIPAP: No Cardiac: Yes (CARDIAC CATH 2015--MILD TO MODERATE DISEASE, NO INTERVENTION) Coronary Artery Disease, High Cholesterol, Hypertension Neurological: No Reproductive Disorders: No Genitourinary: Yes (HYPOGONADISM) Gastrointestinal: Yes (DIVERTICULOSIS NOTED ON COLONOSCOPY; GASTRITIS) Diverticulosis, Polyps Musculoskeletal: No Endocrine: Yes (HYPOGONADISM) Cancer: No Psychosocial: Yes Depression Integumentary: No Blood Disorders: Yes (POLYCYTHEMIA, 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 6.0oz. 84.163317mj; 28.1 BMI Method:Stated General Appearance: No Apparent Distress, WD/WN HEENT: PERRL/EOMI, Other (NO EXTERNAL EVIDENCE OF TRAUMA) Neck: Full Range of Motion, Normal Inspection, Non Tender, Supple; No Carotid Bruit, No JVD Respiratory: Chest Non Tender, Normal Breath Sounds, No Accessory Muscle Use, No Respiratory Distress Cardiovascular: Regular Rate, Rhythm, No Edema, No JVD, No Murmur, Normal Peripheral Pulses Gastrointestinal: Normal Bowel Sounds, No Organomegaly, No Pulsatile Mass, Non Tender, Soft Back: Normal Inspection, No CVA Tenderness, No Vertebral Tenderness Extremity: Normal Capillary Refill, No Calf Tenderness, No Pedal Edema, Other ( TENDERNESS TO LEFT HIP) Neurologic/Psychiatric: Alert, Oriented x3, No Motor/Sensory Deficits, Normal Mood/Affect, chief guard II-XII Norm as Tested Skin: Normal Color, Warm/Dry Focused Exam Lactate Level 01/10/19 23:45: Lactic Acid Level 0.92 Progress/Results/Core Measures Suspected Sepsis Recent Fever Within 48 Hours: No Infection Criteria Present: None New/Unexplained Altered Menta: Yes Sepsis Screen: No Definite Risk SIRS Temperature:98.5 Pulse: 101 Respiratory Rate: 22 Laboratory Tests 01/10/19 22:06: White Blood Count 8.7 01/11/19 03:12: White Blood Count 7.9 Blood Pressure 149 /104 Mean: 119 01/10/19 23:45: Lactic Acid Level 0.92 Laboratory Tests 01/10/19 22:06: Creatinine 1.18, INR Comment 1.0, Platelet Count 278, Total Bilirubin 1.0 01/11/19 03:12: Creatinine 1.00, Platelet Count 247, Total Bilirubin 0.7 Results/Orders Lab Results Laboratory Tests Test 01/10/19 21:19 01/10/19 22:06 01/10/19 23:45 01/11/19 03:12 Range/Units Urine Color ARCHA[place] H Urine Clarity SLIGHTLY CLOUDY Urine pH 7 5-9 Urine Specific [place] 1.010 L 1.016-1.022 Urine Protein 3+ H NEGATIVE Urine Glucose (UA) NEGATIVE NEGATIVE Urine Ketones 1+ H NEGATIVE Urine Nitrite NEGATIVE NEGATIVE Urine Bilirubin 1+ H NEGATIVE Urine Urobilinogen 12 H NORMAL MG/DL Urine Leukocyte Esterase 2+ H NEGATIVE Urine RBC (Auto) 2+ H NEGATIVE Urine RBC 0-2 /HPF Urine WBC 5-10 H /HPF Urine Squamous Epithelial Cells 2-5 /HPF Urine Crystals NONE /LPF Urine Bacteria FEW H /HPF Urine Casts NONE /LPF Urine Mucus MODERATE H /LPF Urine Culture Indicated YES Urine Opiates Screen NEGATIVE NEGATIVE Urine Oxycodone Screen NEGATIVE NEGATIVE Urine Methadone Screen NEGATIVE NEGATIVE Urine Propoxyphene Screen NEGATIVE NEGATIVE Urine Barbiturates Screen NEGATIVE NEGATIVE Ur Tricyclic Antidepressants Screen POSITIVE H NEGATIVE Urine Phencyclidine Screen NEGATIVE NEGATIVE Urine Amphetamines Screen NEGATIVE NEGATIVE Urine Methamphetamines Screen NEGATIVE NEGATIVE Urine Benzodiazepines Screen NEGATIVE NEGATIVE Urine Cocaine Screen NEGATIVE NEGATIVE Urine Cannabinoids Screen NEGATIVE NEGATIVE White Blood Count 8.7 7.9 4.3-11.0 10^3/uL Red Blood Count 5.61 5.44 4.35-5.85 10^6/uL Hemoglobin 13.8 13.2 L 13.3-17.7 G/DL Hematocrit 46 45 40-54 % Mean Corpuscular Volume 82 82 80-99 FL Mean Corpuscular Hemoglobin 25 24 L 25-34 PG Mean Corpuscular Hemoglobin Concent 30 L 30 L 32-36 G/DL Red Cell Distribution Width 17.8 H 17.8 H 10.0-14.5 % Platelet Count 278 247 130-400 10^3/uL Mean Platelet Volume 9.4 9.7 7.4-10.4 FL Neutrophils (%) (Auto) 72 73 42-75 % Lymphocytes (%) (Auto) 14 14 12-44 % Monocytes (%) (Auto) 12 12 0-12 % Eosinophils (%) (Auto) 1 1 0-10 % Basophils (%) (Auto) 0 0 0-10 % Neutrophils # (Auto) 6.3 5.7 1.8-7.8 X 10^3 Lymphocytes # (Auto) 1.2 1.1 1.0-4.0 X 10^3 Monocytes # (Auto) 1.1 H 0.9 0.0-1.0 X 10^3 Eosinophils # (Auto) 0.1 0.1 0.0-0.3 10^3/uL Basophils # (Auto) 0.0 0.0 0.0-0.1 10^3/uL Prothrombin Time 13.9 12.2-14.7 SEC INR Comment 1.0 0.8-1.4 Activated Partial Thromboplast Time 29 24-35 SEC Sodium Level 141 138 135-145 MMOL/L Potassium Level 2.4 *L 2.1 *L 3.6-5.0 MMOL/L Chloride Level 91 L 91 L 98-107 MMOL/L Carbon Dioxide Level 35 H 35 H 21-32 MMOL/L Anion Gap 15 H 12 5-14 MMOL/L Blood Urea Nitrogen 18 16 7-18 MG/DL Creatinine 1.18 1.00 0.60-1.30 MG/DL Estimat Glomerular Filtration Rate 59 > 60 BUN/Creatinine Ratio 15 16 Glucose Level 115 H 175 H 70-105 MG/DL Calcium Level 9.0 8.6 8.5-10.1 MG/DL Corrected Calcium 9.3 9.2 8.5-10.1 MG/DL Magnesium Level 1.7 L 1.9 1.8-2.4 MG/DL Total Bilirubin 1.0 0.7 0.1-1.0 MG/DL Aspartate Amino Transf (AST/SGOT) 24 21 5-34 U/L Alanine Aminotransferase (ALT/SGPT) 21 19 0-55 U/L Alkaline Phosphatase 104 93 40-136 U/L Troponin I < 0.028 <0.028 NG/ML Total Protein 6.9 6.2 L 6.4-8.2 GM/DL Albumin 3.6 3.3 3.2-4.5 GM/DL TSH [place] Testing 0.58 0.35-4.94 UIU/ML Serum Alcohol < 10 <10 MG/DL Lactic Acid Level 0.92 0.50-2.00 MMOL/L My Orders Orders - MARIELY HINOJOSA DO Ct Head/Cervical Spine Wo (01/10/19 21:09) Ct Extremity Lower Left Wo (01/10/19 21:09) Ed Iv/Invasive Line Start (01/10/19 21:09) Monitor-Rhythm Ecg Trace Only (01/10/19 21:09) Alcohol (01/10/19 21:09) Cbc With Automated Diff (01/10/19:09) Comprehensive Metabolic Panel (01/10/19 21:09) Drug Screen Stat (Urine) (01/10/19 21:09) Magnesium (01/10/19 21:09) Protime With Inr (01/10/19 21:09) Partial Thromboplastin Time (01/10/19 21:09) Thyroid Analyzer (01/10/19 21:09) Ua Culture If Indicated (01/10/19 21:09) Troponin I (01/10/19 21:09) Chest 1 View, Ap/Pa Only (01/10/19 21:09) Ct Pelvis Wo (01/10/19 21:12) Urine Culture (01/10/19:19) D5 1/2 Ns W/Kcl 20 Meq/L (Dextrose 5%/0. (01/10/19 22:45) Magnesium 1 Gm/100 Ml Ivpb (Magnesium Vega (01/10/19 22:45) Ekg Tracing (01/10/19 22:44) Ceftriaxone For Iv Use (Rocephin For I (01/10/19 23:15) Lactic Acid Analyzer (01/10/19 23:10) Blood Culture (01/10/19 23:10) Medications Given in ED Current Medications Medications Dose Ordered Sig/[place] Route Start Time Stop Time Status Last Admin Dose Admin Magnesium Sulfate/ Dextrose 100 ml @ 100 mls/hr ONCE ONCE IV 01/10/19 22:45 01/10/19 23:44 DC 01/10/19 23:09 100 MLS/HR Vital Signs/I&O 01/10/19 01/11/19 01/11/19 01/11/19 21:08 00:37 01:00 01:00 Temp 99.6 99.6 98.7 Pulse 69 69 100 Resp 18 18 20 B/P (MAP) 168/112 (130) 168/112 (130) 157/122 (134) Pulse Ox 99 99 92 O2 Delivery Room Air Room Air Room Air 01/11/19 01/11/19 01/11/19 01/11/19 01:15 01:17 01:29 01:30 Pulse 106 116 104 Resp 14 25 B/P (MAP) 140/92 (108) 130/100 (110) Pulse Ox 92 97 92 O2 Delivery Room Air Room Air Room Air 01/11/19 01/11/19 01/11/19 01/11/19 01:45 02:00 03:00 04:00 Pulse 114 105 93 101 Resp 23 15 23 22 B/P (MAP) 159/121 (134) 169/97 (121) 161/129 (140) 149/104 (119) Pulse Ox 91 90 91 95 O2 Delivery Room Air Room Air Room Air Room Air 01/11/19 04:00 Temp 98.5 Capillary Refill : Less Than 3 SecondsLess Than 3 Seconds Blood Pressure Mean: 119 Progress Note : Progress Note NO DETERIORATION IN PT'S CONDITION DURING ER STAY PT DID NOT APPEAR CONFUSED AND NO EVIDENCE OF HALLUCINATING DURING STAY. ECG Initial ECG Impression Date: Jan 10, 2019 Initial ECG Impression Time: 22:55 Initial ECG Rate: 114 Initial ECG Rhythm: Normal Sinus (PAC'S AND PVC'S) Diagnostic Imaging Comments CT HEAD/CERVICAL SPINE--NO ACUTE PROCESS, DEGENERATIVE CHANGES OF SPINE--PER RADIOLOGIST REPORT AT 2255 CT PELVIS AND LEFT LOWER EXTREMITY--NON-DISPLACED FRACTURE OF ANTERIOR COLUMN OF ACETABULUM, NO ARTICULAR EXTENSION, NO SIGNIFICANT HEMATOMA, NO FEMORAL HEAD OR NECK FRACTURE--PER RADIOLOGIST VIA PHONE AT 2200 CXR--NO ACUTE PROCESS PER RADIOLOGIST REPORT AT 2255 Reviewed: Reviewed by Me, Discussed w/Radiologist Departure Communication (Admissions) 2205--SPOKE WITH DR. AGUILAR, ORTHOPEDIC SURGEON MELTER OPERATOR. HE WILL SEE PT OUTPATIENT, PT DOES NOT NEED TO BE ADMITTED FOR THE FRACTURE, OR HE WILL SEE IN CONSULT IF ADMITTED TO MEDICINE SERVICE FOR OTHER REASON. PT MAY AMBULATE WITH WALKER, IT IS A NON-SURGICAL FRACTURE. 230--SPOKE WITH DR. CHAMPION, ACCEPTS PT FOR ADMIT. Impression Primary Impression: Altered mental status Additional Impressions: UTI (urinary tract infection) Left acetabular fracture Alcoholism Hypokalemia Hypomagnesemia Disposition: ADMITTED INPATIENT Condition: Stable Admissions Decision to Admit Reason: Admit from ER (General) Decision to Admit/Date: Jan 10, 2019 Time/Decision to Admit Time: 23:10 Departure-Patient Inst. Referrals: PATTY CHAMPION MD (PCP) Primary Care Physician MARIELY HINOJOSA DO Jan 11, 2019 06:12
[2019-01-11] MEDS: fentaNYL INJECTION 100 MCG/2 ML AMP IV PRN ×2 (06:30→20:35)
[2019-01-11] MEDS ORDERED: DEXMEDETOMIDINE INJECTION 200 MCG in NS (IVPB) 50 ML IV SCH (06:45)
[2019-01-11] MEDS ORDERED: NS (IVPB) 50 ML ONE (06:55)
[2019-01-11 06:59] LABS: ABG BASE EXCESS 15.1 MMOL/L (-2.5-2.5); ABG OXYGEN SATURATION 99 % (94-100); ABG PCO2 52 MMHG (35-45); ABG PO2 143 MMHG (79-93); ABG TCO2 41.4 MMOL/L (21.0-31.0)
[2019-01-11 07:02] LABS: ALLENS TEST YES-POS; INSPIRED O2 6L; PATIENT TEMP 97.6; VENTILATOR NO
--- NOTE | 2019-01-11 07:10 | Pulmonary Consultation ---
History of Present Illness History of Present Illness Date of Consultation 01/11/19 06:51 Time Seen by Provider: 08:25 Date of Admission History of Present Illness 78yo with hx of alcohol dependance presented to ED secondary to S/p fall 2 days ago hitting head on wall followed by worsening left hip pain, confusion, hallucinations. Pt was found to have left acetabular fracture s/p fall and new onset Afib. Pt is currently very confused all information obtained from chart. PT was admitted with LOW protocol. Head CT was done and is negative. PT has already pulled 1 IV out and is also pulling at catheter. Allergies and Home Medications Allergies Coded Allergies: ibuprofen (Unverified Allergy, Unknown, 01/07/16) Home Medications Aspirin 81 Mg Tab.chew, 81 MG PO DAILY Prescribed by: NYLA CLINTON on 01/08/16 1340 Cyclobenzaprine HCl 10 Mg Tablet, 10 MG PO Q8H PRN for SPASMS Prescribed by: ANNY LIM on 01/09/19 1248 Lisinopril/Hydrochlorothiazide 1 Each Tablet, 40-50 MG PO DAILY Prescribed by: LAURIE MARTINEZ on 01/07/16 2245 Lovastatin 40 Mg Tablet, 40 MG PO DAILY Prescribed by: NYLA CLINTON on 01/08/16 1340 Metoprolol Succinate 50 Mg Tab.er.24h, 50 MG PO DAILY Prescribed by: NYLA CLINTON on 01/08/16 1340 Potassium Chloride 20 Meq Tablet.er, 20 MEQ PO DAILY Prescribed by: ANNY LIM on 01/09/19 1248 Tramadol HCl 50 Mg Tablet, 50 MG PO BID PRN for MODERATE PAIN Prescribed by: LAURIE MARTINEZ on 01/07/16 2245 Past Eidzlun-Cfekdy-Lorvef Hx Patient Social History Alcohol Use: Regular Use (DRINKS DAILY) Number of Drinks Today: BB Alcohol Beverage of Choice: [place] Recreational Drug Use: No Smoking Status: Current Everyday Smoker Type Used: Cigars 2nd Hand Smoke Exposure: No Recent Foreign Travel: No Contact w/Someone Who Travel: No Recent Infectious Disease Expo: No Recent Hopitalizations: No Physical Abuse: No Sexual Abuse: No Fear: No Immunizations Up To Date Tetanus Booster (TDap): Unknown Date of Pneumonia Vaccine: Apr 08, 2012 Date of Influenza Vaccine: Mar 17, 2014 Past Medical History Surgeries: Yes (CYST ON ROOF OF MOUTH REMOVED; EGD/COLONOSCOPIES/POLYPECTOMIES; CARDIAC CATH 2015--MILD TO MODERATE DISEASE, NO INTERVENTION) Cardiac, Orthopedic Respiratory: No Currently Using CPAP: No Currently Using BIPAP: No Cardiac: Yes (CARDIAC CATH 2015--MILD TO MODERATE DISEASE, NO INTERVENTION) Coronary Artery Disease, High Cholesterol, Hypertension Neurological: No Reproductive Disorders: No Genitourinary: Yes (HYPOGONADISM) Gastrointestinal: Yes (DIVERTICULOSIS NOTED ON COLONOSCOPY; GASTRITIS) Diverticulosis, Polyps Musculoskeletal: No Endocrine: Yes (HYPOGONADISM) Cancer: No Psychosocial: Yes Depression Integumentary: No Blood Disorders: Yes (POLYCYTHEMIA, 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 6.0oz. 84.579123vc; 28.1 BMI Method:Stated Exam Exam Vital Signs Date Time Temp Pulse Resp B/P (MAP) Pulse Ox O2 Delivery O2 Flow Rate FiO2 01/11/19 04:00 98.5 01/11/19 04:00 101 22 149/104 (119) 95 Room Air 01/11/19 03:00 93 23 161/129 (140) 91 Room Air 01/11/19 02:00 105 15 169/97 (121) 90 Room Air 01/11/19 01:45 114 23 159/121 (134) 91 Room Air 01/11/19 01:30 104 25 130/100 (110) 92 Room Air 01/11/19 01:29 97 Room Air 01/11/19 01:17 116 01/11/19 01:15 106 14 140/92 (108) 92 Room Air 01/11/19 01:00 98.7 Room Air 01/11/19 01:00 100 20 157/122 (134) 92 Room Air 01/11/19 00:37 99.6 69 18 168/112 (130) 99 01/10/19 21:08 99.6 69 18 168/112 (130) 99 Room Air I & O 01/11/19 06:59 Intake Total 110 ml Balance 110 ml Height & Weight Height: 5'8.00" Weight: 186lbs. 6.0oz. 84.724932jn; 28.1 BMI Method:Stated General Appearance: Anxious, Chronically ill, Moderate Distress HEENT: PERRL/EOMI, Normal ENT Inspection, Pharynx Normal Neck: Full Range of Motion, Non Tender, Supple Respiratory: No Accessory Muscle Use, No Respiratory Distress, Decreased Breath Sounds Cardiovascular: Regular Rate, Rhythm, No Edema, Normal Peripheral Pulses Capillary Refill: Less Than 3 Seconds Gastrointestinal: normal bowel sounds, non tender, soft, no organomegaly Extremity: Normal Capillary Refill, No Pedal Edema Neurologic/Psychiatric: Alert, Depressed Affect, Disoriented Skin: Normal Color, Warm/Dry Lymphatic: No Adenopathy Results Lab Laboratory Tests 01/10/19 22:06 01/11/19 03:12 Assessment/Plan Assessment/Plan Alcoholism - confused and hallucinating -Pt is pulling at IVs and sim -Will order restraints and sitter -LOW protocol -Check stat ABG -Start Precedex -Pt may need intubation Metabolic encephalopathy -Head CT is negative Severe hypokalemia -give 100meq of KCL -repeat 2 hours after replacement UTI -Continue Rocephin Left acetabular fracture s/p fall -Ortho consulted BEKAH BREEN DO Jan 11, 2019 07:10
[2019-01-11] MEDS ORDERED: cefTRIAXone FOR IV USE 1,000 MG in WATER (STERILE) FOR INJECTION 10 ML IV SCH (07:15)
[2019-01-11] MEDS ORDERED: SODIUM PHOSPHATE INJ 30 MM in NS (IVPB) 250 ML IV ONE (07:15)
[2019-01-11] MEDS ORDERED: LACTATED RINGERS 1,000 ML IV SCH ×2 (07:15→15:45)
[2019-01-11] MEDS: POTASSIUM CL 10MEQ/50ML IVPB 50 ML IV SCH ×14 (07:21→20:37)
[2019-01-11] MEDS ORDERED: THIAMINE INJECTION 100 MG, FOLIC ACID INJECTION 1 MG, MAGNESIUM SULFATE 2 GM, VITAMIN M... IV SCH ×5 (09:00)
[2019-01-11] MEDS ORDERED: lisINopril 20 MG (PRINIVIL) TABLET PO ONE (09:15)
--- NOTE | 2019-01-11 09:41 | CONSULTATION REPORT ---
DATE OF SERVICE: 01/11/2019 INPATIENT CONSULTATION REASON FOR CONSULTATION: Left nondisplaced acetabular fracture. HISTORY OF PRESENT ILLNESS: The patient is an 78-year-old gentleman who fell 3 days ago and presented to the Emergency Department at that point. He represented last evening and ultimately was found to have a nondisplaced anterior column acetabular fracture on CT scan. The patient has had difficulty with ambulation. Radiographs and CT were reviewed. I spoke with if patient can be treated with a walker with weightbearing as tolerated on left lower extremity and we will plan on seeing him as an outpatient two to three weeks after discharge. Job ID: [id number] DocumentID: [id number] Dictated Date: 01/11/2019 07:36:29 Solid Die Cutter Date: 01/11/2019 09:41:19 Dictated By: SUMI AGUILAR MD
[2019-01-11] MEDS: DEXMEDETOMIDINE INJECTION 1,000 MCG in NS (IVPB) 250 ML IV SCH ×2 (09:49→21:10)
--- NOTE | 2019-01-11 11:08 | History & Physical-Hospitalist ---
History of Present Illness HPI/Chief Complaint the patient is a active 78-year-old white male known to who apparently had a fall on the . He presented to the emergency room on the due to left hip pain. The initial plain films revealed no fracture. He appeared to be having short runs of atrial fibrillation that were asymptomatic.he returned to the emergency room late evening the with confusion brought in by his . Upon my arrival this morning due to agitation Dr. Marcum had to place him on Precedex and he was sedated appearing to be in no acute distress. He does have a history of alcohol use disorder and had been drinking which I suspect c ontributed to his fall with repeat CT scanning revealing an anterior column acetabular fracture. Dr. Gill was informed noting that conservative medical management was most appropriate with recommendations for use of a walker until pain was tolerable. Date Seen 01/11/19 Time Seen by a Provider: 08:00 Attending Physician Patty Patel MD PCP Patty Patel MD Referring Physician Date of Admission Jan 10, 2019 at 23:08 Home Medications & Allergies Home Medications Reviewed patient Home Medication Reconciliation performed by pharmacy medication reconciliations transmission technician and/or nursing. Patients Allergies have been reviewed. Allergies Allergies Coded Allergies ibuprofen (Unverified Allergy, Unknown, 01/07/16) Past Jopfigg-Bcffhk-Rvplhs Hx Past Med/Social Hx: Reviewed and Corrections made Patient Social History Alcohol Use: Regular Use (DRINKS DAILY) Number of Drinks Today: BB Alcohol Beverage of Choice: [place] Recreational Drug Use: No Smoking Status: Current Everyday Smoker Type Used: Cigars 2nd Hand Smoke Exposure: No Recent Foreign Travel: No Contact w/other who traveled: No Recent Hopitalizations: No Recent Infectious Disease Expo: No Immunizations Up To Date Tetanus Booster (TDap): Unknown Date of Pneumonia Vaccine: Apr 08, 2012 Date of Influenza Vaccine: Mar 17, 2014 Past Medical History Surgeries: Cardiac, Orthopedic Currently Using CPAP: No Currently Using BIPAP: No Cardiac: Coronary Artery Disease, High Cholesterol, Hypertension Reproductive: No Gastrointestinal: Diverticulosis, Polyps Psychosocial: Depression History of Blood Disorders: Yes (POLYCYTHEMIA, 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 6.0oz. 84.293315cq; 28.1 BMI Method:Stated General Appearance: No Apparent Distress, Other (Sedated) Neck: Normal Inspection Respiratory: Chest Non Tender, Lungs Clear, No Accessory Muscle Use, No Respiratory Distress, Other (sonorous rhonchi noted) Cardiovascular: Regular Rate, Rhythm, No Edema, No Gallop, No JVD, No Murmur, Normal Peripheral Pulses Gastrointestinal: Normal Bowel Sounds, No Organomegaly, No Pulsatile Mass, Non Tender, Soft Extremity: Normal Capillary Refill, Normal Inspection, Normal Range of Motion, Non Tender, No Calf Tenderness, No Pedal Edema Results Results/Procedures Labs Laboratory Tests 01/10/19 22:06 01/11/19 03:12 Patient resulted labs reviewed. Assessment/Plan Admission Diagnosis 1. Delirium multifactorial possibly aggravated by cyclobenzaprine will continue. 2. Hypokalemia hold thiazide therapy and replace. 3. Possible paroxysmal atrial fibrillation continue telemetry monitoring. 4. Hypertension Admission Status: Inpatient Order (span 2 midnights) Reason for Inpatient Admission: see admission diagnosis Clinical Quality Measures DVT/VTE Risk/Contraindication: Risk Factor Score Per Nursin RFS Level Per Nursing on Admit: 4+=Very High Copy Copies To 1: PATTY PATEL MD, MARK D MD Jan 11, 2019 11:08
--- NOTE | 2019-01-11 11:11 | NUR ---
CIWA SCALE NOT DONE BY THIS RN THIS SHIFT, PT IS ON SEDATION MEDICATION AND UNABLE TO ANSWER QUESTIONS.
[2019-01-11 13:26] LABS: ABG BASE EXCESS 12.6 MMOL/L (-2.5-2.5); ABG OXYGEN SATURATION 98 % (94-100); ABG PCO2 55 MMHG (35-45); ABG PH 7.44 (7.37-7.43); ABG PO2 90 MMHG (79-93); ABG TCO2 39.4 MMOL/L (21.0-31.0)
[2019-01-11 13:27] LABS: ALLENS TEST YES-POS; INSPIRED O2 6; PATIENT TEMP 96.3; VENTILATOR NO
--- NOTE | 2019-01-11 15:43 | NUR ---
DR BREEN NOTIFIED OF DECREASED URINE OUTPUT, NEW ORDERS RECEIVED. SEE ORDER HX
[2019-01-11 15:56] LABS: BASOPHILS % (AUTO) 0 % (0-10); EOSINOPHILS # (AUTO) 0.1 10^3/uL (0.0-0.3); EOSINOPHILS % (AUTO) 1 % (0-10); HEMATOCRIT 41 % (40-54); HEMOGLOBIN 12.3 G/DL (13.3-17.7); LYMPHOCYTES # (AUTO) 0.9 X 10^3 (1.0-4.0); LYMPHOCYTES % (AUTO) 10 % (12-44); MEAN CORPUSCULAR HEMOGLOBIN 25 PG (25-34); MEAN CORPUSCULAR HGB CONC 30 G/DL (32-36); MEAN CORPUSCULAR VOLUME 83 FL (80-99); MEAN PLATELET VOLUME 9.8 FL (7.4-10.4); MONOCYTES # (AUTO) 0.8 X 10^3 (0.0-1.0); MONOCYTES % (AUTO) 8 % (0-12); NEUTROPHILS # (AUTO) 7.9 X 10^3 (1.8-7.8); NEUTROPHILS % (AUTO) 81 % (42-75); PLATELET COUNT 206 10^3/uL (130-400); RED CELL DISTRIBUTION WIDTH 17.2 % (10.0-14.5); WHITE BLOOD COUNT 9.7 10^3/uL (4.3-11.0)
[2019-01-11 16:12] LABS: ALANINE AMINOTRANSFERASE 17 U/L (0-55); ALKALINE PHOSPHATASE 83 U/L (40-136); BILIRUBIN,TOTAL 0.7 MG/DL (0.1-1.0); BUN/CREATININE RATIO 15; CALCIUM 7.9 MG/DL (8.5-10.1); CARBON DIOXIDE 31 MMOL/L (21-32); CHLORIDE 95 MMOL/L (98-107); CREATININE SERUM 0.82 MG/DL (0.60-1.30); GFR ESTIMATED > 60; GLUCOSE 193 MG/DL (70-105); POTASSIUM 3.1 MMOL/L (3.6-5.0); SODIUM 137 MMOL/L (135-145); TOTAL PROTEIN 5.6 GM/DL (6.4-8.2)
[2019-01-11] MEDS: LACTATED RINGERS 1,000 ML IV SCH ×2 (16:43→22:31)
[2019-01-11 16:44] LABS: MAGNESIUM 2.1 MG/DL (1.8-2.4); PHOSPHORUS 3.9 MG/DL (2.3-4.7)
--- NOTE | 2019-01-11 16:59 | NUR ---
DR BREEN NOTIFIED OF LAB RESULTS NEW ORDERS RECEIVED TO GIVE AN ADDITIONAL 60MEQ IV POTASSIUM. ORDERS ENTERED.
[2019-01-12] VITALS (16 sets, daily range): BP systolic 112–210; BP diastolic 80–136
[2019-01-12 03:46] LABS: BASOPHILS % (AUTO) 0 % (0-10); EOSINOPHILS # (AUTO) 0.2 10^3/uL (0.0-0.3); EOSINOPHILS % (AUTO) 1 % (0-10); HEMATOCRIT 43 % (40-54); HEMOGLOBIN 12.9 G/DL (13.3-17.7); LYMPHOCYTES # (AUTO) 1.2 X 10^3 (1.0-4.0); LYMPHOCYTES % (AUTO) 11 % (12-44); MEAN CORPUSCULAR HEMOGLOBIN 25 PG (25-34); MEAN CORPUSCULAR HGB CONC 30 G/DL (32-36); MEAN CORPUSCULAR VOLUME 83 FL (80-99); MEAN PLATELET VOLUME 10.2 FL (7.4-10.4); MONOCYTES % (AUTO) 9 % (0-12); NEUTROPHILS # (AUTO) 8.4 X 10^3 (1.8-7.8); NEUTROPHILS % (AUTO) 78 % (42-75); PLATELET COUNT 207 10^3/uL (130-400); RED CELL DISTRIBUTION WIDTH 16.9 % (10.0-14.5); WHITE BLOOD COUNT 10.7 10^3/uL (4.3-11.0)
[2019-01-12 04:09] LABS: BUN/CREATININE RATIO 14; CALCIUM 8.4 MG/DL (8.5-10.1); CARBON DIOXIDE 30 MMOL/L (21-32); CHLORIDE 96 MMOL/L (98-107); CREATININE SERUM 0.92 MG/DL (0.60-1.30); GFR ESTIMATED > 60; GLUCOSE 111 MG/DL (70-105); MAGNESIUM 1.8 MG/DL (1.8-2.4); PHOSPHORUS 3.2 MG/DL (2.3-4.7); POTASSIUM 2.9 MMOL/L (3.6-5.0); SODIUM 138 MMOL/L (135-145)
[2019-01-12] MEDS ORDERED: POTASSIUM CL 10MEQ/50ML IVPB 50 ML IV ONE (04:30)
[2019-01-12] MEDS: POTASSIUM CL 10MEQ/50ML IVPB 50 ML IV SCH ×7 (04:31→09:00)
[2019-01-12] MEDS: LACTATED RINGERS 1,000 ML IV SCH ×2 (05:13→11:52)
[2019-01-12] MEDS: DEXMEDETOMIDINE INJECTION 1,000 MCG in NS (IVPB) 250 ML IV SCH (05:14)
[2019-01-12] MEDS ORDERED: MAGNESIUM 1 GM/100 ML IVPB 100 ML IV SCH (06:00)
[2019-01-12] MEDS ORDERED: KCL 20 MEQ TAB (K-DUR) PO SCH (06:00)
[2019-01-12] MEDS ORDERED: meTOprolol 5 MG/5 ML (LOPRESSOR) VIAL IV SCH (06:00)
[2019-01-12] MEDS ORDERED: POTASSIUM CL 10MEQ/50ML IVPB 50 ML IV SCH ×2 (06:00→11:30)
[2019-01-12] MEDS ORDERED: hydrALAZINE (APESOLINE) 20 MG/ML VIAL IV PRN (06:15)
--- NOTE | 2019-01-12 06:20 | Pulmonary Progress Note ---
Subjective Time Seen by a Provider: 07:08 Subjective/Events-last exam PT is currently sleeping. Per RN he has been agitated most of the night. He is doing better since starting Precedex gtt. Sepsis Event Evaluation Height, Weight, BMI Height: 5'8.00" Weight: 187lbs. 6.0oz. 84.940009li; 28.1 BMI Method:Stated Focused Exam Lactate Level 01/10/19 23:45: Lactic Acid Level 0.92 Exam Exam Vital Signs Date Time Temp Pulse Resp B/P (MAP) Pulse Ox O2 Delivery O2 Flow Rate FiO2 01/12/19 05:11 68 24 167/102 (123) 97 Nasal Cannula 6.00 01/12/19 04:26 70 28 151/113 (126) 94 Nasal Cannula 6.00 01/12/19 04:00 71 26 171/119 (136) 94 Nasal Cannula 6.00 01/12/19 03:18 73 24 175/112 (133) 95 Nasal Cannula 6.00 01/12/19 03:00 72 25 165/126 (139) 95 Nasal Cannula 6.00 01/12/19 02:00 71 26 168/108 (128) 95 Nasal Cannula 6.00 01/12/19 01:00 70 01/12/19 01:00 70 24 170/110 (130) 95 Nasal Cannula 6.00 01/12/19 00:00 71 31 164/106 (125) 94 Nasal Cannula 6.00 01/12/19 00:00 96.9 01/12/19 00:00 100 Nasal Cannula 6.00 01/11/19 23:50 Nasal Cannula 6.00 01/11/19 23:00 70 25 143/104 (117) 94 Nasal Cannula 6.00 01/11/19 22:00 68 24 139/92 (108) 96 Nasal Cannula 6.00 01/11/19 21:00 67 22 131/95 (107) 100 Nasal Cannula 6.00 01/11/19 20:00 100 Nasal Cannula 6.00 01/11/19 20:00 69 19 126/100 (109) 98 Nasal Cannula 6.00 01/11/19 19:55 96.7 01/11/19 19:17 64 25 109/77 (88) 100 Nasal Cannula 6.00 01/11/19 19:00 72 01/11/19 18:00 69 25 128/89 (102) 100 Room Air 01/11/19 17:00 63 20 80/68 (72) 100 Room Air 01/11/19 16:00 96.4 01/11/19 16:00 100 Nasal Cannula 6.00 01/11/19 16:00 63 22 116/84 (95) 100 Room Air 01/11/19 15:00 66 21 128/100 (109) 100 Room Air 01/11/19 14:00 69 22 117/89 (98) 99 Room Air 01/11/19 13:27 100 Nasal Cannula 6.00 01/11/19 13:00 73 21 110/84 (93) 99 Room Air 01/11/19 12:41 76 01/11/19 12:35 100 Nasal Cannula 6.00 01/11/19 12:00 96.3 01/11/19 12:00 88 25 157/110 (126) 100 Room Air 01/11/19 11:00 78 21 141/98 (112) 100 Room Air 01/11/19 10:00 82 23 138/97 (111) 100 Room Air 01/11/19 09:00 100 Nasal Cannula 6.00 01/11/19 09:00 105 31 174/111 (132) 95 Room Air 01/11/19 08:00 100 Nasal Cannula 6.00 01/11/19 08:00 95 28 166/112 (130) 95 Room Air 01/11/19 07:00 113 01/11/19 07:00 95 22 156/110 (125) 97 Room Air I & O 01/12/19 07:00 Intake Total 2625 ml Output Total 980 ml Balance 1645 ml Height & Weight Height: 5'8.00" Weight: 187lbs. 6.0oz. 84.489035iu; 28.1 BMI Method:Stated General Appearance: Mild Distress, Other (currenlty sleeping ) HEENT: PERRL/EOMI, Pharynx Normal Neck: Full Range of Motion, Non Tender, Supple Respiratory: Accessory Muscle Use, Decreased Breath Sounds Cardiovascular: No Edema, No Murmur Capillary Refill: Less Than 3 Seconds Gastrointestinal: normal bowel sounds, non tender, soft Extremity: Normal Capillary Refill, Non Tender, No Pedal Edema Neurologic/Psychiatric: Depressed Affect, Disoriented Skin: Normal Color, Warm/Dry Lymphatic: No Adenopathy Results Lab Laboratory Tests 7/27/19 22:06 01/11/19 03:12 01/11/19 15:45 01/12/19 02:55 Assessment/Plan Assessment/Plan Alcoholism - confused and hallucinating -PT is currently asleep -Continue end tidal C02 monitor -LOW protocol -Continue Precedex and limit Ativan -Pt may need intubation Metabolic encephalopathy -Head CT is negative Severe hypokalemia -repeat 2 hours after replacement UTI -Continue Rocephin Left acetabular fracture s/p fall -Ortho consulted BEKAH BREEN DO Jan 12, 2019 06:20
[2019-01-12] MEDS ORDERED: MAGNESIUM 1 GM/100 ML IVPB 100 ML IV NR (06:30)
[2019-01-12] MEDS: LORazepam INJ 2 MG/ML (ATIVAN) VIAL IV PRN ×4 (07:20→13:09)
--- NOTE | 2019-01-12 07:59 | Progress Note - Hospitalist ---
Subjective HPI/CC On Admission Date Seen by Provider: Jan 12, 2019 Time Seen by Provider: 07:57 the patient is a active 78-year-old white male known to who apparently had a fall on the . He presented to the emergency room on the due to left hip pain. The initial plain films revealed no fracture. He appeared to be having short runs of atrial fibrillation that were asymptomatic.he returned to the emergency room late evening the with confusion brought in by his . Upon my arrival this morning due to agitation Dr. Marcum had to place him on Precedex and he was sedated appearing to be in no acute distress. He does have a history of alcohol use disorder and had been drinking which I suspect contributed to his fall with repeat CT scanning revealing an anterior column acetabular fracture. Dr. Gill was informed noting that conservative medical management was most appropriate with recommendations for use of a walker until pain was tolerable. Subjective/Events-last exam Pt is agitated on precedex gtt. No ROS due to agitation. Discussed with RN and he has become violent at times. Low threshold for restraints if violent episodes returns as would impede his care. Focused Exam Lactate Level 01/10/19 23:45: Lactic Acid Level 0.92 Objective Exam Vital Signs Vital Signs Date Time Temp Pulse Resp B/P (MAP) Pulse Ox O2 Delivery O2 Flow Rate FiO2 01/12/19 06:00 71 13 162/108 (126) 96 Nasal Cannula 6.00 01/12/19 00:00 96.9 Capillary Refill : Less Than 3 SecondsLess Than 3 Seconds General Appearance: Chronically ill, Other (agitated) Respiratory: Accessory Muscle Use, Decreased Breath Sounds Cardiovascular: No Murmur, Tachycardia Gastrointestinal: Normal Bowel Sounds, Soft; No Distended Genital/Rectal: Other (sim in place with red urine present) Extremity: No Pedal Edema Neurologic/Psychiatric: Other (agitated) Results/Procedures Lab Laboratory Tests 01/11/19 15:45 01/12/19 02:55 Patient resulted labs reviewed. Assessment/Plan Assessment and Plan Assess & Plan/Chief Complaint Alcohol Withdrawal Clinical Quality Measures DVT/VTE Risk/Contraindication: Risk Factor Score Per Nursin RFS Level Per Nursing on Admit: 4+=Very High PETROS LIZARRAGA MD Jan 12, 2019 07:59
--- NOTE | 2019-01-12 08:13 | Diagnostic Imaging Report ---
Examination: Chest one view. History: Altered mental status. Findings: Comparison is 01/10/2019. Lung volumes are small with patchy areas of atelectasis and vascular crowding. No pleural effusion. No pneumothorax. Heart size is normal. No edema. Impression: 1. Small lung volumes with patchy areas of atelectasis. Dictated by: Dictated on workstation # [id number]
--- NOTE | 2019-01-12 08:40 | NUR ---
This RN at bedside due to pt complaint of SOB. Pt currently request to sit on edge of bed at this time. Pt appears very anxious with labored breathing. Tremors noted at this time. Pt attempted to lay back on bed and became unresponsive. Agonal breathing noted. RT called at this time and staff assist button pushed. Maranda RN, Heather, RN and this RN attempted to bag pt at this time. HR began to drop to 50s, unable to feel pulse at this time. Haresh medina called at 0844.
--- NOTE | 2019-01-12 08:44 | NUR ---
Code Blue see Intervention for documentation
[2019-01-12] MEDS ORDERED: NS IV 1000 ML 1,000 ML ONE (08:55)
[2019-01-12] MEDS ORDERED: THIAMINE INJECTION 100 MG, FOLIC ACID INJECTION 1 MG, VITAMIN MULTI INJECTION 10 ML, MA... IV SCH ×5 (09:00)
[2019-01-12] MEDS ORDERED: lisINopril 20 MG (PRINIVIL) TABLET PO SCH (09:00)
[2019-01-12] MEDS ORDERED: PROPOFOL DRIP (ICU) 100 ML IV ONE (09:07)
--- NOTE | 2019-01-12 09:10 | NUR ---
Central line placed by Dr Marcum in Left Femoral see intervention for documentation.
--- NOTE | 2019-01-12 09:11 | Anesthesia-Procedure Note ---
Procedures/Interventions Procedure Start/Stop/Diagnosis Date of Procedure: Jan 12, 2019 Start Time: 08:45 Referring Physician: Jorge Preprocedural Diagnosis: Cardiac Arrest Brief History Responded to ICU 11 after Haresh medina was called overhead. Code team in progress with CPR and ventilations per BVM. Dr. Marcum attempted intubation with glidescope but deferred to anesthesia. Grade 2 view with Glidescope. #8.0 ETT passed x1 attempt with color change of EZ cap and BS B/L. Oropharynx clear. Tube secured at 24 and taped per RT. Ventilations continued per RT. CPR continued and code team resumed ACLS protocol. Stop Time: 08:50 Postprocedural Diagnosis: Cardiac Arrest ELIANA MORALES CRNA Jan 12, 2019 09:11
[2019-01-12 09:12] LABS: ABG BASE EXCESS -4.9 MMOL/L (-2.5-2.5); ABG OXYGEN SATURATION 99 % (94-100); ABG PCO2 70 MMHG (35-45); ABG PO2 312 MMHG (79-93); ABG TCO2 25.2 MMOL/L (21.0-31.0)
--- NOTE | 2019-01-12 09:14 | Code Blue Response-Hospitalist ---
General Date Seen/Responded 01/12/19 History of Present Illness Time seen by provider: 08:45 Initial Comments Responded to overhead Code Blue call. On arrival to room patient laying horizontally in bed and high quality chest compressions were in place. Defibrillator pads were placed on arrival and patient was quickly reposition in bed during pulse check. Patient was in PEA and chest compressions resumed. Dr Marcum at bedside for intubation. Ultimately intubated by JENNA Damico with glidescope. Patient remained in PEA on pulse checks throughout code and received 4 doses of epi at appropriate intervals per ACLS guidelines. On fifth pulse check thready pulse was palpable. Central line was then placed by Dr Marcum. He was given a liter bolus of LR, labs were drawn, and CT head and chest were ordered stat to evaluate for CVA or PE. I discussed events of this morning with family who elected to make him a DNR at this time. Timing/Duration: just prior to arrival Allergies and Home Medications Allergies Coded Allergies: ibuprofen (Unverified Allergy, Unknown, 01/07/16) Home Medications Aspirin 81 Mg Tab.chew, 81 MG PO DAILY Prescribed by: NYLA CLINTON on 01/08/16 1340 Citalopram Hydrobromide 40 Mg Tablet, 40 MG PO DAILY, (Reported) Cyclobenzaprine HCl 10 Mg Tablet, 10 MG PO Q8H PRN for SPASMS Prescribed by: ANNY LIM on 01/09/19 1248 Lisinopril/Hydrochlorothiazide 1 Each Tablet, 2 TAB PO DAILY, (Reported) TAKES 2 OF THE 20/25MG TABS DAILY Potassium Chloride 8 Meq Capsule.er, 8 MEQ PO DAILY, (Reported) Tramadol HCl 50 Mg Tablet, 50 MG PO BID PRN for MODERATE PAIN Prescribed by: LAURIE MARTINEZ on 01/07/16 2245 Patient Home Medication List Home Medication List Reviewed: Yes Physical Exam Vital Signs Vital Signs - First Documented 01/10/19 01/12/19 21:08 09:37 Temp 99.6 Pulse 69 Resp 18 B/P (MAP) 168/112 (130) Pulse Ox 99 O2 Delivery Room Air FiO2 100 Capillary Refill : Less Than 3 SecondsLess Than 3 Seconds Height, Weight, BMI Height: 5'8.00" Weight: 187lbs. 6.0oz. 84.628389rg; 28.1 BMI Method:Stated General Appearance: severe distress Critical Care Note Critical Care Start Time: 08:46 Stop Time: 09:37 Progress/Results/Core Measures Results/Orders Lab Results Laboratory Tests Test 01/10/19 21:19 01/10/19 22:06 01/10/19 23:08 01/10/19 23:45 Range/Units Urine Color ARCHANA H Urine Clarity SLIGHTLY CLOUDY Urine pH 7 5-9 Urine Specific Varney 1.010 L 1.016-1.022 Urine Protein 3+ H NEGATIVE Urine Glucose (UA) NEGATIVE NEGATIVE Urine Ketones 1+ H NEGATIVE Urine Nitrite NEGATIVE NEGATIVE Urine Bilirubin 1+ H NEGATIVE Urine Urobilinogen 12 H NORMAL MG/DL Urine Leukocyte Esterase 2+ H NEGATIVE Urine RBC (Auto) 2+ H NEGATIVE Urine RBC 0-2 /HPF Urine WBC 5-10 H /HPF Urine Squamous Epithelial Cells 2-5 /HPF Urine Crystals NONE /LPF Urine Bacteria FEW H /HPF Urine Casts NONE /LPF Urine Mucus MODERATE H /LPF Urine Culture Indicated YES Urine Opiates Screen NEGATIVE NEGATIVE Urine Oxycodone Screen NEGATIVE NEGATIVE Urine Methadone Screen NEGATIVE NEGATIVE Urine Propoxyphene Screen NEGATIVE NEGATIVE Urine Barbiturates Screen NEGATIVE NEGATIVE Ur Tricyclic Antidepressants Screen POSITIVE H NEGATIVE Urine Phencyclidine Screen NEGATIVE NEGATIVE Urine Amphetamines Screen NEGATIVE NEGATIVE Urine Methamphetamines Screen NEGATIVE NEGATIVE Urine Benzodiazepines Screen NEGATIVE NEGATIVE Urine Cocaine Screen NEGATIVE NEGATIVE Urine Cannabinoids Screen NEGATIVE NEGATIVE White Blood Count 8.7 4.3-11.0 10^3/uL Red Blood Count 5.61 4.35-5.85 10^6/uL Hemoglobin 13.8 13.3-17.7 G/DL Hematocrit 46 40-54 % Mean Corpuscular Volume 82 80-99 FL Mean Corpuscular Hemoglobin 25 25-34 PG Mean Corpuscular Hemoglobin Concent 30 L 32-36 G/DL Red Cell Distribution Width 17.8 H 10.0-14.5 % Platelet Count 278 130-400 10^3/uL Mean Platelet Volume 9.4 7.4-10.4 FL Neutrophils (%) (Auto) 72 42-75 % Lymphocytes (%) (Auto) 14 12-44 % Monocytes (%) (Auto) 12 0-12 % Eosinophils (%) (Auto) 1 0-10 % Basophils (%) (Auto) 0 0-10 % Neutrophils # (Auto) 6.3 1.8-7.8 X 10^3 Lymphocytes # (Auto) 1.2 1.0-4.0 X 10^3 Monocytes # (Auto) 1.1 H 0.0-1.0 X 10^3 Eosinophils # (Auto) 0.1 0.0-0.3 10^3/uL Basophils # (Auto) 0.0 0.0-0.1 10^3/uL Prothrombin Time 13.9 12.2-14.7 SEC INR Comment 1.0 0.8-1.4 Activated Partial Thromboplast Time 29 24-35 SEC Sodium Level 141 135-145 MMOL/L Potassium Level 2.4 *L 3.6-5.0 MMOL/L Chloride Level 91 L 98-107 MMOL/L Carbon Dioxide Level 35 H 21-32 MMOL/L Anion Gap 15 H 5-14 MMOL/L Blood Urea Nitrogen 18 7-18 MG/DL Creatinine 1.18 0.60-1.30 MG/DL Estimat Glomerular Filtration Rate 59 BUN/Creatinine Ratio 15 Glucose Level 115 H 70-105 MG/DL Calcium Level 9.0 8.5-10.1 MG/DL Corrected Calcium 9.3 8.5-10.1 MG/DL Magnesium Level 1.7 L 1.8-2.4 MG/DL Total Bilirubin 1.0 0.1-1.0 MG/DL Aspartate Amino Transf (AST/SGOT) 24 5-34 U/L Alanine Aminotransferase (ALT/SGPT) 21 0-55 U/L Alkaline Phosphatase 104 40-136 U/L Troponin I < 0.028 <0.028 NG/ML Total Protein 6.9 6.4-8.2 GM/DL Albumin 3.6 3.2-4.5 GM/DL TSH [place] Testing 0.58 0.35-4.94 UIU/ML Serum Alcohol < 10 <10 MG/DL Lab Scanned Report Referred Lab Report [id number] Lactic Acid Level 0.92 0.50-2.00 MMOL/L Test 01/11/19 03:12 01/11/19 03:50 01/11/19 06:50 01/11/19 13:20 Range/Units White Blood Count 7.9 4.3-11.0 10^3/uL Red Blood Count 5.44 4.35-5.85 10^6/uL Hemoglobin 13.2 L 13.3-17.7 G/DL Hematocrit 45 40-54 % Mean Corpuscular Volume 82 80-99 FL Mean Corpuscular Hemoglobin 24 L 25-34 PG Mean Corpuscular Hemoglobin Concent 30 L 32-36 G/DL Red Cell Distribution Width 17.8 H 10.0-14.5 % Platelet Count 247 130-400 10^3/uL Mean Platelet Volume 9.7 7.4-10.4 FL Neutrophils (%) (Auto) 73 42-75 % Lymphocytes (%) (Auto) 14 12-44 % Monocytes (%) (Auto) 12 0-12 % Eosinophils (%) (Auto) 1 0-10 % Basophils (%) (Auto) 0 0-10 % Neutrophils # (Auto) 5.7 1.8-7.8 X 10^3 Lymphocytes # (Auto) 1.1 1.0-4.0 X 10^3 Monocytes # (Auto) 0.9 0.0-1.0 X 10^3 Eosinophils # (Auto) 0.1 0.0-0.3 10^3/uL Basophils # (Auto) 0.0 0.0-0.1 10^3/uL Sodium Level 138 135-145 MMOL/L Potassium Level 2.1 *L 3.6-5.0 MMOL/L Chloride Level 91 L 98-107 MMOL/L Carbon Dioxide Level 35 H 21-32 MMOL/L Anion Gap 12 5-14 MMOL/L Blood Urea Nitrogen 16 7-18 MG/DL Creatinine 1.00 0.60-1.30 MG/DL Estimat Glomerular Filtration Rate > 60 BUN/Creatinine Ratio 16 Glucose Level 175 H 70-105 MG/DL Calcium Level 8.6 8.5-10.1 MG/DL Corrected Calcium 9.2 8.5-10.1 MG/DL Magnesium Level 1.9 1.8-2.4 MG/DL Total Bilirubin 0.7 0.1-1.0 MG/DL Aspartate Amino Transf (AST/SGOT) 21 5-34 U/L Alanine Aminotransferase (ALT/SGPT) 19 0-55 U/L Alkaline Phosphatase 93 40-136 U/L Total Protein 6.2 L 6.4-8.2 GM/DL Albumin 3.3 3.2-4.5 GM/DL Phosphorus Level 1.9 L 2.3-4.7 MG/DL Blood Gas Puncture Site LEFT RADIAL LT RAD Blood Gas Patient Temperature 97.6 96.3 Arterial Blood pH 7.50 H 7.44 H 7.37-7.43 Arterial Blood Partial Pressure CO2 52 H 55 H 35-45 MMHG Arterial Blood Partial Pressure O2 143 H 90 79-93 MMHG Arterial Blood HCO3 40 H 38 H 23-27 MMOL/L Arterial Blood Total CO2 41.4 H 39.4 H 21.0-31.0 MMOL/L Arterial Blood Oxygen Saturation 99 98 94-100 % Arterial Blood Base Excess 15.1 H 12.6 H -2.5-2.5 MMOL/L Kosta Test YES-POS YES-POS Blood Gas Ventilator Setting NO NO Blood Gas Inspired Oxygen 6L 6 Test 01/11/19 15:45 01/12/19 02:55 01/12/19 09:05 01/12/19 09:15 Range/Units White Blood Count 9.7 10.7 18.8 H 4.3-11.0 10^3/uL Red Blood Count 4.89 5.20 5.20 4.35-5.85 10^6/uL Hemoglobin 12.3 L 12.9 L 13.0 L 13.3-17.7 G/DL Hematocrit 41 43 44 40-54 % Mean Corpuscular Volume 83 83 84 80-99 FL Mean Corpuscular Hemoglobin 25 25 25 25-34 PG Mean Corpuscular Hemoglobin Concent 30 L 30 L 30 L 32-36 G/DL Red Cell Distribution Width 17.2 H 16.9 H 17.2 H 10.0-14.5 % Platelet Count 206 207 287 130-400 10^3/uL Mean Platelet Volume 9.8 10.2 10.3 7.4-10.4 FL Neutrophils (%) (Auto) 81 H 78 H 76 H 42-75 % Lymphocytes (%) (Auto) 10 L 11 L 15 12-44 % Monocytes (%) (Auto) 8 9 8 0-12 % Eosinophils (%) (Auto) 1 1 1 0-10 % Basophils (%) (Auto) 0 0 0 0-10 % Neutrophils # (Auto) 7.9 H 8.4 H 14.3 H 1.8-7.8 X 10^3 Lymphocytes # (Auto) 0.9 L 1.2 2.8 1.0-4.0 X 10^3 Monocytes # (Auto) 0.8 1.0 1.4 H 0.0-1.0 X 10^3 Eosinophils # (Auto) 0.1 0.2 0.2 0.0-0.3 10^3/uL Basophils # (Auto) 0.0 0.0 0.1 0.0-0.1 10^3/uL Sodium Level 137 138 141 135-145 MMOL/L Potassium Level 3.1 L 2.9 L 2.9 L 3.6-5.0 MMOL/L Chloride Level 95 L 96 L 97 L 98-107 MMOL/L Carbon Dioxide Level 31 30 21 21-32 MMOL/L Anion Gap 11 12 23 H 5-14 MMOL/L Blood Urea Nitrogen 12 13 15 7-18 MG/DL Creatinine 0.82 0.92 1.19 0.60-1.30 MG/DL Estimat Glomerular Filtration Rate > 60 > 60 59 BUN/Creatinine Ratio 15 14 13 Glucose Level 193 H 111 H 140 H 70-105 MG/DL Calcium Level 7.9 L 8.4 L 8.3 L 8.5-10.1 MG/DL Corrected Calcium 8.7 8.9 8.5-10.1 MG/DL Phosphorus Level 3.9 3.2 4.7 2.3-4.7 MG/DL Magnesium Level 2.1 1.8 1.8 1.8-2.4 MG/DL Total Bilirubin 0.7 1.3 H 0.1-1.0 MG/DL Aspartate Amino Transf (AST/SGOT) 19 117 H 5-34 U/L Alanine Aminotransferase (ALT/SGPT) 17 93 H 0-55 U/L Alkaline Phosphatase 83 107 40-136 U/L Total Protein 5.6 L 6.0 L 6.4-8.2 GM/DL Albumin 3.0 L 3.2 3.2-4.5 GM/DL Blood Gas Puncture Site RT BRACHIAL Blood Gas Patient Temperature 98.0 Arterial Blood pH 7.14 *L 7.37-7.43 Arterial Blood Partial Pressure CO2 70 H 35-45 MMHG Arterial Blood Partial Pressure O2 312 H 79-93 MMHG Arterial Blood HCO3 23 23-27 MMOL/L Arterial Blood Total CO2 25.2 21.0-31.0 MMOL/L Arterial Blood Oxygen Saturation 99 94-100 % Arterial Blood Base Excess -4.9 L -2.5-2.5 MMOL/L Kosta Test YES-POS Blood Gas Ventilator Setting NA Blood Gas Inspired Oxygen 100% Neutrophils % (Manual) 79 % Lymphocytes % (Manual) 7 % Monocytes % (Manual) 7 % Eosinophils % (Manual) 0 % Basophils % (Manual) 1 % Band Neutrophils 6 % Anisocytosis SLIGHT Prothrombin Time 15.6 H 12.2-14.7 SEC INR Comment 1.2 0.8-1.4 Activated Partial Thromboplast Time 32 24-35 SEC Lactic Acid Level 11.50 *H 0.50-2.00 MMOL/L Test 01/12/19 10:28 01/12/19 11:20 01/12/19 11:55 Range/Units Blood Gas Puncture Site RT BRACHIAL LT RADIAL A-LINE Blood Gas Patient Temperature 97.6 99.5 Arterial Blood pH 7.15 *L 7.40 7.37-7.43 Arterial Blood Partial Pressure CO2 77 *H 47 H 35-45 MMHG Arterial Blood Partial Pressure O2 48 L 88 79-93 MMHG Arterial Blood HCO3 26 28 H 23-27 MMOL/L Arterial Blood Total CO2 28.2 29.2 21.0-31.0 MMOL/L Arterial Blood Oxygen Saturation 60 L 96 94-100 % Arterial Blood Base Excess -2.3 3.4 H -2.5-2.5 MMOL/L Kosta Test YES-POS YES-POS Blood Gas Ventilator Setting YES YES Blood Gas Inspired Oxygen 100% 80 Lactic Acid Level 7.68 *H 0.50-2.00 MMOL/L Micro Results Microbiology 01/10/19 Blood Culture - Preliminary, Resulted No growth 01/10/19 Blood Culture - Preliminary, Resulted No growth 01/10/19 Urine Culture - Final, Complete 3 or more isolates My Orders Orders - PETROS LIZARRAGA MD Norepinephrine (Levophed) (01/12/19 09:15) Cbc With Automated Diff (01/12/19 09:03) Comprehensive Metabolic Panel (01/12/19 09:03) Magnesium (01/12/19 09:03) Phosphorus (01/12/19 09:03) Protime With Inr (01/12/19 09:03) Partial Thromboplastin Time (01/12/19 09:03) Arterial Blood Gas (01/12/19 09:03) Chest 1 View, Ap/Pa Only (01/12/19 09:03) Ct Head Wo (01/12/19 09:03) Echo W Doppler/Color Flow (01/12/19 09:03) Echo Limited (01/12/19 09:01) Manual Differential (01/12/19 09:15) Code/Resuscitation (01/12/19 10:16) Medications Given in ED Current Medications Medications Dose Ordered Sig/Dakota Route Start Time Stop Time Status Last Admin Dose Admin Hydralazine HCl 10 mg Q4HR PRN IV 01/12/19 06:15 01/12/19 06:54 10 MG Iohexol 150 ml ONCE ONCE IV 01/12/19 11:15 01/12/19 11:38 DC 01/12/19 10:45 150 ML Lorazepam 4 mg ONCE ONCE IVP 01/12/19 11:15 01/12/19 11:38 DC 01/12/19 11:15 4 MG Morphine Sulfate For Mild to Severe pa... Q2H PRN IV 01/12/19 12:30 01/12/19 13:10 4 MG Potassium Chloride 50 ml @ 50 mls/hr ONCE ONCE IV 01/12/19 04:30 01/12/19 05:29 DC 01/12/19 04:31 50 MLS/HR Propofol 100 ml @ ud STK-MED ONCE IV 01/12/19 09:07 01/12/19 09:14 DC 01/12/19 10:18 10.2 MLS/HR Sodium Chloride 100 ml ONCE ONCE IV 01/12/19 11:15 01/12/19 11:38 DC 01/12/19 09:45 100 ML Vital Signs/I&O 01/10/19 01/11/19 01/11/19 01/11/19 21:08 00:37 01:00 01:00 Temp 99.6 99.6 98.7 Pulse 69 69 100 Resp 18 18 20 B/P (MAP) 168/112 (130) 168/112 (130) 157/122 (134) Pulse Ox 99 99 92 O2 Delivery Room Air Room Air Room Air 01/11/19 01/11/19 01/11/19 01/11/19 01:15 01:17 01:29 01:30 Pulse 106 116 104 Resp 14 25 B/P (MAP) 140/92 (108) 130/100 (110) Pulse Ox 92 97 92 O2 Delivery Room Air Room Air Room Air 01/11/19 01/11/19 01/11/19 01/11/19 01:45 02:00 03:00 04:00 Pulse 114 105 93 101 Resp 23 15 23 22 B/P (MAP) 159/121 (134) 169/97 (121) 161/129 (140) 149/104 (119) Pulse Ox 91 90 91 95 O2 Delivery Room Air Room Air Room Air Room Air 01/11/19 01/11/19 01/11/19 01/11/19 04:00 04:00 07:00 07:00 Temp 98.5 Pulse 95 113 Resp 22 B/P (MAP) 156/110 (125) Pulse Ox 100 97 O2 Delivery Nasal Cannula Room Air O2 Flow Rate 6.00 01/11/19 01/11/19 01/11/19 01/11/19 08:00 08:00 09:00 09:00 Pulse 95 105 Resp 31 B/P (MAP) 166/112 (130) 174/111 (132) Pulse Ox 95 100 95 100 O2 Delivery Room Air Nasal Cannula Room Air Nasal Cannula O2 Flow Rate 6.00 6.00 01/11/19 01/11/19 01/11/19 01/11/19 10:00 11:00 12:00 12:00 Temp 96.3 Pulse 82 78 88 Resp 23 21 25 B/P (MAP) 138/97 (111) 141/98 (112) 157/110 (126) Pulse Ox 100 100 100 O2 Delivery Room Air Room Air Room Air 01/11/19 01/11/19 01/11/19 01/11/19 12:35 12:41 13:00 13:27 Pulse 76 73 Resp 21 B/P (MAP) 110/84 (93) Pulse Ox 100 99 100 O2 Delivery Nasal Cannula Room Air Nasal Cannula O2 Flow Rate 6.00 6.00 01/11/19 01/11/19 01/11/19 01/11/19 14:00 15:00 16:00 16:00 Pulse 69 66 63 Resp 22 21 22 B/P (MAP) 117/89 (98) 128/100 (109) 116/84 (95) Pulse Ox 99 100 100 100 O2 Delivery Room Air Room Air Room Air Nasal Cannula O2 Flow Rate 6.00 01/11/19 01/11/19 01/11/19 01/11/19 16:00 17:00 18:00 19:00 Temp 96.4 Pulse 63 69 72 Resp 25 B/P (MAP) 80/68 (72) 128/89 (102) Pulse Ox 100 100 O2 Delivery Room Air Room Air 01/11/19 01/11/19 01/11/19 01/11/19 19:17 19:55 20:00 20:00 Temp 96.7 Pulse 64 69 Resp 19 B/P (MAP) 109/77 (88) 126/100 (109) Pulse Ox 100 98 100 O2 Delivery Nasal Cannula Nasal Cannula Nasal Cannula O2 Flow Rate 6.00 6.00 6.00 01/11/19 01/11/19 01/11/19 01/11/19 21:00 22:00 23:00 23:50 Pulse 67 68 70 Resp 25 B/P (MAP) 131/95 (107) 139/92 (108) 143/104 (117) Pulse Ox 100 96 94 O2 Delivery Nasal Cannula Nasal Cannula Nasal Cannula Nasal Cannula O2 Flow Rate 6.00 6.00 6.00 6.00 01/12/19 01/12/19 01/12/19 01/12/19 00:00 00:00 00:00 01:00 Temp 96.9 Pulse 71 70 Resp 24 B/P (MAP) 164/106 (125) 170/110 (130) Pulse Ox 100 94 95 O2 Delivery Nasal Cannula Nasal Cannula Nasal Cannula O2 Flow Rate 6.00 6.00 6.00 01/12/19 01/12/19 01/12/19 01/12/19 01:00 02:00 03:00 03:18 Pulse 70 71 72 73 Resp 24 B/P (MAP) 168/108 (128) 165/126 (139) 175/112 (133) Pulse Ox 95 95 95 O2 Delivery Nasal Cannula Nasal Cannula Nasal Cannula O2 Flow Rate 6.00 6.00 6.00 01/12/19 01/12/19 01/12/19 01/12/19 04:00 04:26 05:11 06:00 Pulse 71 70 68 71 Resp 24 13 B/P (MAP) 171/119 (136) 151/113 (126) 167/102 (123) 162/108 (126) Pulse Ox 94 94 97 96 O2 Delivery Nasal Cannula Nasal Cannula Nasal Cannula Nasal Cannula O2 Flow Rate 6.00 6.00 6.00 6.00 01/12/19 01/12/19 01/12/19 01/12/19 07:00 07:00 08:00 09:00 Pulse 75 75 96 Resp 28 34 12 B/P (MAP) 142/88 (106) 158/93 (114) 210/136 (160) Pulse Ox 99 98 O2 Delivery Nasal Cannula Nasal Cannula Mechanical Ventilator O2 Flow Rate 6.00 6.00 100.00 01/12/19 01/12/19 01/12/19 01/12/19 09:37 10:00 10:18 11:00 Pulse 92 81 Resp 24 B/P (MAP) 210/136 (160) 212/160 137/95 (109) Pulse Ox 100 100 98 O2 Delivery Mechanical Ventilator Mechanical Ventilator O2 Flow Rate 100.00 100.00 FiO2 100 01/12/19 01/12/19 11:21 12:00 Temp 99.5 Pulse 118 Resp 24 Pulse Ox 95 FiO2 80 01/12/19 00:00 Intake Total 2275 ml Output Total 395 ml Balance 1880 ml Blood Pressure Mean: 126 Diagnostic Imaging Reviewed: Reviewed by Me, Discussed w/Radiologist Clinical Quality Measures DVT/VTE Risk/Contraindication: Risk Factor Score Per Nursin RFS Level Per Nursing on Admit: 4+=Very High PETROS LIZARRAGA MD Jan 12, 2019 09:14
[2019-01-12] MEDS ORDERED: NOREPINEPHRINE 4 MG in NS (IVPB) 250 ML IV SCH ×2 (09:15→09:30)
[2019-01-12 09:16] LABS: ABG PH 7.14 (7.37-7.43); ALLENS TEST YES-POS
[2019-01-12 09:17] LABS: INSPIRED O2 100%
[2019-01-12] MEDS ORDERED: EPINEPHrine 1 MG INJECTION 2 MG in NS (IVPB) 248 ML IV SCH (09:30)
[2019-01-12] MEDS ORDERED: LEVETIRACETAM INJECTION 1,000 MG in NS (IVPB) 100 ML IV SCH (09:30)
[2019-01-12 09:35] LABS: BASOPHILS # (AUTO) 0.1 10^3/uL (0.0-0.1); BASOPHILS % (AUTO) 0 % (0-10); EOSINOPHILS # (AUTO) 0.2 10^3/uL (0.0-0.3); EOSINOPHILS % (AUTO) 1 % (0-10); HEMATOCRIT 44 % (40-54); LYMPHOCYTES # (AUTO) 2.8 X 10^3 (1.0-4.0); LYMPHOCYTES % (AUTO) 15 % (12-44); MEAN CORPUSCULAR HEMOGLOBIN 25 PG (25-34); MEAN CORPUSCULAR HGB CONC 30 G/DL (32-36); MEAN CORPUSCULAR VOLUME 84 FL (80-99); MEAN PLATELET VOLUME 10.3 FL (7.4-10.4); MONOCYTES # (AUTO) 1.4 X 10^3 (0.0-1.0); MONOCYTES % (AUTO) 8 % (0-12); NEUTROPHILS # (AUTO) 14.3 X 10^3 (1.8-7.8); NEUTROPHILS % (AUTO) 76 % (42-75); PLATELET COUNT 287 10^3/uL (130-400); RED CELL DISTRIBUTION WIDTH 17.2 % (10.0-14.5); WHITE BLOOD COUNT 18.8 10^3/uL (4.3-11.0)
--- NOTE | 2019-01-12 09:49 | Diagnostic Imaging Report ---
INDICATION: Intubation. TIME OF EXAM: 9:27 AM Correlation is made with prior study from earlier the same day. FINDINGS: Endotracheal tube has been placed. Tip appears to be in good position above the andra. NG tube passes into the stomach. Heart is enlarged. There is central congestion but no overt failure. No effusion or pneumothorax is seen. IMPRESSION: 1. Endotracheal tube and nasogastric tube placements, as described. 2. Central congestion. Dictated by: Dictated on workstation # [id number]
[2019-01-12 09:53] LABS: INR 1.2 (0.8-1.4); PROTHROMBIN TIME PATIENT 15.6 SEC (12.2-14.7)
[2019-01-12 09:56] LABS: ANISOCYTOSIS SLIGHT; BAND NEUTROPHILS 6 %; BASOPHILS % (MANUAL) 1 %; EOSINOPHILS % (MANUAL) 0 %; LYMPHOCYTES % (MANUAL) 7 %; MONOCYTES % (MANUAL) 7 %; NEUTROPHILS % (MANUAL) 79 %
[2019-01-12 10:03] LABS: ALBUMIN 3.2 GM/DL (3.2-4.5); BILIRUBIN,TOTAL 1.3 MG/DL (0.1-1.0); CALCIUM 8.3 MG/DL (8.5-10.1); CREATININE SERUM 1.19 MG/DL (0.60-1.30); MAGNESIUM 1.8 MG/DL (1.8-2.4); PHOSPHORUS 4.7 MG/DL (2.3-4.7); POTASSIUM 2.9 MMOL/L (3.6-5.0)
--- NOTE | 2019-01-12 10:14 | NUR ---
Pt noted to have seizure like activity with what appears to be posturing. 2mg of Ativan given per Ativan protocol scale. Dr. Marcum notified. Pt prepared for transport to CT at this time with RT at bedside.
--- NOTE | 2019-01-12 10:30 | NUR ---
Response to CODE BLUE: During code, I contacted the pt's , Barbara, who lives in [place]. Her daughter, Brandy, lives in [place] but stayed the night with her mother and drove her to the hospital following our phone call. I met the family in ICU and gathered them in the physician consultation room. Provided active listening and notified Dr. Saldaña and Dr. Marcum of family's presence and location. Dr. Saldaña joined us. Barbara said she believed the pt would not wish to be resuscitated if his heart stopped again. The daughter became tearful and excused herself from the room. I brought tissues to her and she openly shared her sadness for her dad, as well as her agreement with her mother's healthcare decisions. Brandy said her was working in [employer] this morning and is on his way here. Brandy said her used to be a nurse and is "comforting and understanding in these kind of situations." Brandy said she was thankful I approached her, because she did not want to cry in front of her mother. I checked again on Barbara, and then the pt. The pt was unresponsive. Offered prayer at bedside. The nurse said family could see the pt before his scan. When I offered this to the family, they became tearful and said that since he was unresponsive they would defer seeing him at this time. The grandson, Bin was in the waiting room with family when I left. I let family know that staff could have a abalone sheller paged at any time for support. No evangelical affiliation and mandaeism ties at this time. No other family in need of contacting.
[2019-01-12 10:33] LABS: ABG BASE EXCESS -2.3 MMOL/L (-2.5-2.5); ABG OXYGEN SATURATION 60 % (94-100); ABG PO2 48 MMHG (79-93); ABG TCO2 28.2 MMOL/L (21.0-31.0)
[2019-01-12 10:38] LABS: ABG PH 7.15 (7.37-7.43); ALLENS TEST YES-POS; INSPIRED O2 100%; PATIENT TEMP 97.6; VENTILATOR YES
[2019-01-12] MEDS ORDERED: POTA8CAP9 PO (10:38)
[2019-01-12] MEDS ORDERED: LISI1TAB10 PO (10:38)
[2019-01-12 10:39] LABS: ABG PCO2 77 MMHG (35-45)
--- NOTE | 2019-01-12 10:45 | NUR ---
Pt in CT scan at this time. More seizure activity and posturing noted. 2mg of Ativan given at this time per physician orders. RT unable to successfully ventilate pt during seizure like activity. BP and HR stable at this time. Physicians: Dr. Marcum and Dr. Saldaña notified of pt's status in CT. Will continue to closely monitor.
--- NOTE | 2019-01-12 11:05 | Physical Therapy Evaluation ---
PT Evaluation-General Medical Diagnosis Admission Date Jan 10, 2019 at 23:08 Medical Diagnosis: x Onset Date: Jan 10, 2019 Therapy Diagnosis Therapy Diagnosis: x Height/Weight Height (Feet): 5 Height (Inches): 8.00 Weight (Pounds): 187 Weight (Ounces): 6.0 Precautions Precautions/Isolations: Fall Prevention, Standard Precautions Prior/Core FIM Prior Level of Function Therapy Code Descriptions/Definitions Functional Owen Measure: 0=Not Assessed/NA 4=Minimal Assistance 1=Total Assistance 5=Supervision or Setup 2=Maximal Assistance 6=Modified Owen 3=Moderate Assistance 7=Complete Owen Therapy Quality Codes: 6 Independent with activity with or without an assistive device 5 Patient requires set up or clean up by helper. Patient completes activity by themselves 4 Supervision or touching assist (CGA). [place] provide cues , steadying assi st 3 The helper provides less than half the effort to complete the activity 2 The helper provides more than half the effort to complete the activity 1 Dependent. The helper does all the effort to complete an activity 7 Patient refused to complete or attempt activity 9 The patient did not perform the activity before the current illness or injury 88 Not attempted due to Medical conditions or safety concerns Functional Abilities and Goals: Independent: Patient completed the activities by him/herself, with or without an assistive device, with no assistance from a helper. Needed Some Help: Patient needed partial assistance from another person to complete activities. Dependent: A helper completed the activities for the patient. Unknown: Not Applicable: Prior Devices Use: None PT Evaluation-Current Transfers Therapy Code Descriptions/Definitions Functional Owen Measure: 0=Not Assessed/NA 4=Minimal Assistance 1=Total Assistance 5=Supervision or Setup 2=Maximal Assistance 6=Modified Owen 3=Moderate Assistance 7=Complete Owen Gait Distance (FIM): 3=150 ft Assessment/Needs Rehab Potential: Guarded PT Plan Treatment/Plan Treatment Plan: Discontinue PT Treatment Plan: Other Treatment Duration: Jan 12, 2019 Frequency: Estimated Hrs Per Day: Other Patient and/or Family Agrees t: Yes Time/GCodes Time In: 1114 Time Out: 1115 Total Billed Treatment Time: 1 Total Billed Treatment no treatment rendered NILO MURDOCK PT Jan 12, 2019 11:05
--- NOTE | 2019-01-12 11:10 | NUR ---
Pt continues to have more seizure like activity returning from CT scan at this time. 4mg of Ativan ordered per Dr. Marcum at this time. Diprivan started also during this time. Epi initiated due to hypotension per physician orders.
--- NOTE | 2019-01-12 11:10 | Physical Therapy Progress Note ---
Therapy Progress Note Patient is currently on ventilator. PT will continue to monitor patient status. NILO MURDOCK PT Jan 12, 2019 11:10
[2019-01-12] MEDS ORDERED: HOLD METFORMIN - RECEIVED CONTRAST 20 ML VIAL IV SCH (11:15)
[2019-01-12] MEDS ORDERED: NS 100 ML (IVPB) BAG IV ONE (11:15)
[2019-01-12] MEDS ORDERED: LORazepam INJ 2 MG/ML (ATIVAN) VIAL IVP ONE (11:15)
[2019-01-12] MEDS ORDERED: IOHEXOL 350 MG/ML 150 ML (OMNIPAQUE 350) VIAL IV ONE (11:15)
--- NOTE | 2019-01-12 11:23 | Diagnostic Imaging Report ---
PROCEDURE: CT head with and without contrast. TECHNIQUE: Multiple contiguous axial images were obtained through the brain before and after the administration of intravenous contrast. Auto Exposure Controls were utilized during the CT exam to meet ALARA standards for radiation dose reduction. INDICATION: Status post code. COMPARISON: CT head on 01/10/2019 FINDINGS: Exam is somewhat limited due to patient motion. The ventricles and cortical sulci are prominent. There is no midline shift or mass-effect. No acute intracranial hemorrhage is seen. There is no CT evidence of acute territorial ischemia. No focal masses or collections are present. The calvarium is intact. The visualized paranasal sinuses are clear. IMPRESSION: No hemorrhage or focal intra-axial mass. No CT evidence of large acute territorial ischemia. Dictated by: Dictated on workstation # [id number]
--- NOTE | 2019-01-12 11:25 | NUR ---
Dr. Marcum notified of CT scan completion and pt's deteriorating status. Dr. Marcum arrived at bedside at this time to see and assess pt.
[2019-01-12] MEDS ORDERED: SODIUM BICARB 8.4% 50 MEQ/50 ML VIAL IV ONE (11:30)
--- NOTE | 2019-01-12 12:00 | NUR ---
Pt continues to have more seizure-like activity. Dr. Marcum at bedside. No new orders received.
--- NOTE | 2019-01-12 12:02 | Anesthesia-Procedure Note ---
Procedures/Interventions Procedure Start/Stop/Diagnosis Date of Procedure: Jan 12, 2019 Start Time: 11:40 Referring Physician: Jorge Preprocedural Diagnosis: S/p Code Blue Brief History Called to ICU to start A-Line on pt S/P cardiac arrest. Pt restrained on vent. Strong radial pulse on left. 20g left radial roseanna started after sterile prep and drape with chlorhexidine. Wire passed easily. Secured with opsite and tape. Good waveform noted on monitor. Left pt in care of RN with report. Stop Time: 11:50 Postprocedural Diagnosis: S/P Code Blue Arterial Line Arterial Line Catheter: 20G Type: Radial Location: Left Procedure: prepped, draped in sterile fashion, good wave-form was obtained, patient tolerated procedure well, no immediate complications, post procedure area cleaned, post procedure dressing applied ELIANA MORALES CRNA Jan 12, 2019 12:02
[2019-01-12 12:06] LABS: ABG BASE EXCESS 3.4 MMOL/L (-2.5-2.5); ABG OXYGEN SATURATION 96 % (94-100); ABG PCO2 47 MMHG (35-45); ABG PO2 88 MMHG (79-93); ABG TCO2 29.2 MMOL/L (21.0-31.0)
[2019-01-12 12:10] LABS: ALLENS TEST YES-POS; INSPIRED O2 80; PATIENT TEMP 99.5; VENTILATOR YES
--- NOTE | 2019-01-12 12:10 | NUR ---
Dr. Marcum and this RN spoke with family regarding pt's poor prognosis. Barbara Cui () expressed pt's wishes prior to this mornings events were to not be kept on life support. Family agreed at this time to comfort care measures. Family did not wish to be at bedside at time of pt passing. Son-in-law offered to be at bedside for other family members at this time. Salvatore paged and new orders received to initiate comfort care measures per Dr. Marcum.
[2019-01-12] MEDS ORDERED: ONDANSETRON 4 MG/2 ML (SDV) Z0FRAN IVP PRN (12:30)
[2019-01-12] MEDS ORDERED: LORazepam INJ 2 MG/ML (ATIVAN) VIAL IVP PRN (12:30)
[2019-01-12] MEDS ORDERED: morphine INJ 4 MG/ML 1 ML (VIAL/SYRINGE) IV PRN (12:30)
[2019-01-12] MEDS ORDERED: LORazepam INJ 2 MG/ML (ATIVAN) VIAL IVP NR (12:45)
--- NOTE | 2019-01-12 12:53 | NUR ---
Paged for family support following Comfort Care orders: Provided support to the pt's , grandson and daughter. Pt's son-in-law, Rob, was present and later spent time alone with his as she was tearful.
--- NOTE | 2019-01-12 13:00 | NUR ---
Child Care Worker response to pt having life-extending equipment removed following comfort care order. Son in law, Rob, was present at the bedside. He said the other family members did not wish to be present at this time and were in the waiting area. Pt peacefully at 1334 with yard assistant, staff and Rob present. I followed up with pt's and grandson in the consultation room. the was tearful, and said this was "going to be hard to get used to." I provided grief support and empathic listening, while encouraging healing storytelling about the pt. Both eventually helped themselves to beverages and cookies provided on the comfort cart while we visited. I then sought out the pt's daughter who was in the other waiting room. She was reclining on the couch with her feet elevated on the arm rest and her eyes covered with a paper towel. She told me she felt like she was going to pass out, and that she was just trying to relax. I provided her with a cool damp cloth and closed the blinds, for which she thanked me. Offered reassurance and then privacy. Addendum: 01/12/19 at 1509 by GEORGIE DOHERTY PAST CORRECTION TOElyse [id number]
--- NOTE | 2019-01-12 13:08 | Pulmonary Progress Note ---
Standard Progress Note Progress Notes Time Seen by Provider: 10:30 Called to room secondary to CODE Blue. Upon my arrival pt was being bagged and masked. Chest compression and meds delivered per ACLS protocol. RN states Pt appeared to be seizing just after syncopal episode. Pt went into PEA. With several rounds of epi and over 12 mins of ACLS ROSC was obtained. Assessment & Plan S/p CODE Blue with ROSC -Check Stat head CT and CTA of chest r/o PE Acute seizures -Ativan -Keppra Acute respiratory failure -Ventilator -repeat ABG Alcoholism - confused and hallucinating -LOW protocol Metabolic encephalopathy -Head CT is negative Severe hypokalemia -repeat 2 hours after replacement UTI -Continue Rocephin Left acetabular fracture s/p fall -Ortho consulted 1220: talked with family regarding pt's current status and plan of care. states pt would not want this and other family members agree. They would like to make patient comfort care only and withdrawal care. They understand he will without aggressive medical treatment. I answered all of their questions and discussed with medical team. total time spent with pt is 120min of ICU time not including procedure. Critical Care: Critically Ill Patient Time spent with patient (mins): 120 Focused Exam Lactate Level 01/10/19 23:45: Lactic Acid Level 0.92 01/12/19 09:15: Lactic Acid Level 11.50*H 01/12/19 11:20: Lactic Acid Level 7.68*H Lactic Acid Level Laboratory Tests Test 01/12/19 09:15 01/12/19 11:20 Lactic Acid Level 11.50 MMOL/L (0.50-2.00) *H 7.68 MMOL/L (0.50-2.00) *H BEKAH BREEN DO Jan 12, 2019 13:08
--- NOTE | 2019-01-12 13:20 | NUR ---
Pt cleaned up and prepared for extubation by this RN. RT at bedside at this time. Extubation performed. Pt appeared peaceful upon extubation with minimal respiratory distress or pain. Son-in-law at bedside at this time. Salvatore Ada with family in waiting area at this time.
--- NOTE | 2019-01-12 13:32 | Diagnostic Imaging Report ---
PROCEDURE: CT angiography of the chest with contrast. TECHNIQUE: Multiple contiguous axial images were obtained through the chest after the uneventful bolus administration of intravenous contrast. 3D reconstructed CTA MIP acquisitions were also performed. Auto Exposure Controls were utilized during the CT exam to meet ALARA standards for radiation dose reduction. INDICATION: Status post code. COMPARISON: Chest x-ray from the same day. FINDINGS: There is significant motion artifact throughout the examination. This results in suboptimal evaluation of the pulmonary arteries but no significant central pulmonary embolus is seen. The heart is upper normal in size. There is no pericardial effusion. No mediastinal adenopathy is seen. There is no enlargement of the right ventricle. An enteric tube extends into the stomach. The endotracheal tube terminates at the level of the andra, directed slightly to the right mainstem bronchus. There are airspace opacities in the lower lobes bilaterally, likely mostly atelectasis although underlying infiltrate is not excluded. No significant pleural effusion or pneumothorax is seen. There are multiple left-sided rib fractures anteriorly, particularly at the second through fifth ribs. The imaged portions of the upper abdomen demonstrate mild gallbladder wall thickening which is nonspecific. IMPRESSION: 1. Significant motion artifact but no central pulmonary embolus is seen. 2. Airspace opacities in the lungs bilaterally, likely atelectasis, although underlying infiltrate is not excluded. 3. The endotracheal tube terminates at the andra, directed slightly to the right. Recommend 2-4 cm of retraction. 4. Left-sided rib fractures. 5. Nonspecific gallbladder wall thickening. 6. Message left and faxed to floor by cvb (for LANDRY) Dictated by: Dictated on workstation # [id number]
--- NOTE | 2019-01-12 13:37 | NUR ---
Respirations cessation and Heart beat undetectable at this time by this RN and FRANCIA Low. Time of pronounced. Son-in-law at bedside at this time. Salvatore Trinidad also at bedside at this time. Remaining family in waiting area updated by Salvatore Trinidad post time of . home called by Salvatore also during this time.
--- NOTE | 2019-01-12 14:45 | Discharge Summary ---
Discharge Summary Date of Admission Jan 10, 2019 at 23:08 Date of Discharge Admission Diagnosis 1. Delirium multifactorial possibly aggravated by cyclobenzaprine will continue. 2. Hypokalemia hold thiazide therapy and replace. 3. Possible paroxysmal atrial fibrillation continue telemetry monitoring. 4. Hypertension Consults/Procedures Consulations Dr Marcum- Blossom Dominguez Comfort Measures/ Date of : Jan 12, 2019 Time of : 13:37 Pt was admitted for altered mental status and hip fracture. His hip fracture was deemed not to be operative and PT was consulted. He then developed delirium and likely alcohol withdrawal and required a precedex drip. He was also profoundly hypokalemic despite aggressive replacement. On 01/12 he sat up in bed and became short of breath. He then started to convulse per RN report and became pulseless. CPR was started and CODE BLUE called. He was resuscitated in accordance with ACLS guidelines. He regained a pulse and femoral line was placed and vent settings were adjusted by Dr Marcum. He went to CT urgently for evaluate of stroke or PE. He developed seizure like activity and was treated with ativan. His family at that point elected to transition to comfort measures only and palliatively extubate patient. He at 1337. Discharge Diagnosis Alcohol Withdrawal PETROS LIZARRAGA MD Jan 12, 2019 14:45
[2019-01-12] MEDS ORDERED: EPINEPHrine 0.1 MG/ML 10 ML (HOSPIRA) SYR INJ ONE (14:48)
[2019-01-12] MEDS ORDERED: SODIUM BICARB 8.4% 50 MEQ/50 ML (ABBOTT) SYR INJ ONE (14:48)
--- NOTE | 2019-01-12 14:49 | NUR ---
Home staff at bedside at this time. Body released to mortuary at this time. Personal belongings given to and family in waiting area.
--- NOTE | 2019-01-12 17:03 | Pulmonary Procedures ---
Pulmonary Procedures Date of Procedure Date of Service: Jan 12, 2019 Lumen: triple Central Line Procedure: betadine prep, sterile drapes applied Position: femoral (L) Complications: none Post Position: sutured, good blood return BEKAH BREEN DO Jan 12, 2019 17:03
== END 2019-01-12 14:49 | disposition expired | DRG 896 ==
LOC: EDUNIT# 20:40 → ER 20:43 → ICU 23:08
PROVIDERS: ADMIT Internal Medicine; ATTEND Internal Medicine
PROC: 5A1935Z Respiratory Ventilation, Less than 24 Consecutive Hours (ICD-10-PCS; principal; 2019-01-12)
PROC: 0BH17EZ Insertion of Endotracheal Airway into Trachea, Via Natural or Artificial Opening (ICD-10-PCS; 2019-01-12)
DX: F10.231 Alcohol dependence with withdrawal delirium (principal); G93.41 Metabolic encephalopathy; I46.9 Cardiac arrest, cause unspecified; J96.00 Acute respiratory failure, unspecified whether with hypoxia or hypercapnia; I48.0 Paroxysmal atrial fibrillation; N39.0 Urinary tract infection, site not specified; S32.432A Displaced fracture of anterior column [iliopubic] of left acetabulum, initial encounter for closed fracture; Z66 Do not resuscitate; Z51.5 Encounter for palliative care; R56.9 Unspecified convulsions; E87.6 Hypokalemia; E83.42 Hypomagnesemia; I10 Essential (primary) hypertension; F17.210 Nicotine dependence, cigarettes, uncomplicated; I25.10 Atherosclerotic heart disease of native coronary artery without angina pectoris; E78.00 Pure hypercholesterolemia, unspecified; E29.1 Testicular hypofunction; F32.9 Major depressive disorder, single episode, unspecified; D75.1 Secondary polycythemia; K57.90 Diverticulosis of intestine, part unspecified, without perforation or abscess without bleeding; Z79.82 Long term (current) use of aspirin; W19.XXXA Unspecified fall, initial encounter
CPT/HCPCS: 36415; 36600; 70450; 70470; 71045; 71275; 72125; 72192; 73700; 80048; 80053; 80306; 80320; 81000; 82805; 83605; 83735; 84100; 84443; 84484; 85007; 85025; 85027; 85610; 85730; 87040; 87070; 87088; 87205; 93005; 93041; 93306; 93308; 94002; 94799; 96374; 96375